=== PATIENT | female | born 1955 | race Caucasian/White ===

== ENCOUNTER 2020-05-05 10:21 | Inpatient (IN) | payer MEDICARE, OTHER ==
--- NOTE | 2020-05-05 11:56 | EDM.PDOC ---
ED HPI GENERAL MEDICAL PROBLEM - General Chief Complaint: Respiratory Problem Stated Complaint: COUGH/HEADACHE Time Seen by Provider: 05/05/20 11:14 Source of Information: Reports: Patient, RN Notes Reviewed History Limitations: Reports: No Limitations - History of Present Illness INITIAL COMMENTS - FREE TEXT/NARRATIVE: Patient is a 64-year-old female who presents to the ED for the evaluation of her ongoing Covid symptoms. Patient notes she was diagnosed with COVID-19 on April 14, she completed her 2 weeks quarantine, and states she feels worse now than she did when she was in her quarantine stage She states that her symptoms seem to worsen at in the evening time. She states that she has a cough that makes her throat raw, she is having some mid central chest discomfort, shortness of breath, not so much at rest, but if she walks any short distance. She states that even talking makes her short of breath. She has a generalized headache, but states naproxen seems to help when she has a headache. She is not having any fevers or chills, nausea/vomiting/diarrhea. She states that she does have diabetes, but she has no other heart or lung issues that she is aware of. Her primary care provider is Shea Cardona. She lives at [facility] at this time. Headache Pain Score (Numeric/FACES): 3 - Related Data Allergies Allergy/AdvReac Type Severity Reaction Status Date / Time levofloxacin [From Levaquin] Allergy Severe Hives Verified 05/05/20 10:35 [id number]-Iug-Mxq Reductase Allergy Severe Leg Cramps Verified 05/05/20 10:35 Inhibitor Home Meds: Home Meds Cetirizine [ZyrTEC] 10 mg PO DAILY 05/05/20 [History] Cyproheptadine HCl 4 mg PO DAILY 05/05/20 [History] DULoxetine [Cymbalta] 60 mg PO DAILY 05/05/20 [History] Empagliflozin [Jardiance] 25 mg PO DAILY 05/05/20 [History] Ezetimibe 10 mg PO DAILY 05/05/20 [History] Fluconazole [Diflucan] 150 mg PO DAILY 05/05/20 [History] Insulin Glarg,Human.Rec.Analog [Lantus Solostar] 5 unit SUBCUT DAILY 05/05/20 [History] Nystatin [Nystatin Ointment] 1 applic TOP DAILY 05/05/20 [History] lisinopriL [Lisinopril] 5 mg PO DAILY 05/05/20 [History] metFORMIN [Glucophage XR] 500 mg PO BIDMEALS 05/05/20 [History] sitaGLIPtin Phosphate [Januvia] 50 mg PO DAILY 05/05/20 [History] Past Medical History Musculoskeletal History: Reports: Arthritis, Fracture Neurological History: Reports: Migraines Endocrine/Metabolic History: Reports: Diabetes, Type II, Obesity/BMI 30+ - Infectious Disease History Infectious Disease History: Reports: Novel Coronavirus (04/14/2020) - Past Surgical History HEENT Surgical History: Reports: Cataract Surgery GI Surgical History: Reports: Cholecystectomy Musculoskeletal Surgical History: Reports: ORIF Social & Family History - Tobacco Use Tobacco Use Status *Q: Former Tobacco User Used Tobacco, but Quit: Yes Month/Year Tobacco Last Used: 1999 - Recreational Drug Use Recreational Drug Use: No ED ROS GENERAL - Review of Systems Review Of Systems: Comprehensive ROS is negative, except as noted in HPI. ED EXAM, GENERAL - Physical Exam Exam: See Below Exam Limited By: No Limitations General Appearance: Alert, WD/WN, No Apparent Distress (pt does seem to get mildly short of breath when talking and this makes it difficult for her to complete sentences.) Throat/Mouth: Normal Inspection, Normal Lips, Normal Teeth, Normal Gums, Normal Oropharynx, Normal Voice, No Airway Compromise Respiratory/Chest: No Respiratory Distress, Lungs Clear, No Accessory Muscle Use, Chest Non-Tender, Decreased Breath Sounds (diffuse bilaterally) Cardiovascular: Normal Peripheral Pulses, Regular Rate, Rhythm, No Murmur Peripheral Pulses: 2+: Radial (L), Radial (R) GI/Abdominal: Normal Bowel Sounds, Soft, Non-Tender, No Distention, No Mass Extremities: Normal Inspection, Normal Capillary Refill Neurological: Alert, Oriented, Normal Cognition, No Motor/Sensory Deficits Psychiatric: Normal Affect, Normal Mood Skin Exam: Warm, Dry, Intact, Normal Color, No Rash #1 Interpretation EKG Date: 05/05/20 Time: 12:24 Rhythm: NSR Rate (Beats/Min): 69 Russell: Normal P-Wave: Present (1 AV block) QRS: Normal ST-T: Normal QT: Prolonged (Moderately prolonged at 529.) Comparison: NA - No Prior EKG EKG Interpretation Comments: No obvious ischemia or acute ST changes noted, reviewed by myself and Dr. Douglas. Course - Vital Signs Last Recorded V/S: Last Vital Signs Temp 97.2 F 05/05/20 10:31 Pulse 93 05/05/20 15:53 Resp 20 05/05/20 15:53 BP 153/83 H 05/05/20 12:16 Pulse Ox 95 05/05/20 15:59 - Orders/Labs/Meds Orders: Active Orders 24 hr Category Date Time Status EKG Documentation Completion [RC] STAT Care 05/05/20 11:40 Ordered Oxygen Therapy, ED [RC] ASDIRECTED Care 05/05/20 15:58 Ordered Ang Chest [CT] Stat Exams 05/05/20 14:17 Ordered Chest 1V Frontal [CR] Stat Exams 05/05/20 11:39 Ordered CULTURE BLOOD [BC] Stat Lab 05/05/20 12:27 Ordered CULTURE BLOOD [BC] Stat Lab 05/05/20 12:27 Ordered Sodium Chloride 0.9% [Normal Saline] 45 ml Med 05/05/20 14:30 Active IV ASDIRECTED Sodium Chloride 0.9% [Saline Flush] Med 05/05/20 14:24 Active 10 ml FLUSH ONETIME PRN Blood Culture x2 Reflex Set [OM.PC] Stat Oth 05/05/20 12:27 Ordered Isolation [COMM] Routine Oth 05/05/20 11:40 Ordered Medication Orders Sodium Chloride (Normal Saline) 45 mls @ 40 mls/hr IV ASDIRECTED [facility] Last Admin: 05/05/20 15:03 Dose: 40 mls/hr Documented by: Sodium Chloride (Saline Flush) 10 ml FLUSH ONETIME PRN PRN Reason: Keep Vein Open Last Admin: 05/05/20 14:36 Dose: 10 ml Documented by: SAMREEN Labs: Laboratory Tests 05/05/20 05/05/20 05/05/20 Range/Units 12:05 12:05 12:05 WBC (3.98-10.04) K/mm3 RBC (3.98-5.22) M/mm3 Hgb (11.2-15.7) gm/dl Hct (34.1-44.9) % MCV (79.4-94.8) fl MCH (25.6-32.2) pg MCHC (32.2-35.5) g/dl RDW Std Deviation (36.4-46.3) fL Plt Count (182-369) K/mm3 MPV (9.4-12.3) fl Neutrophils % (Manual) (40-60) % Band Neutrophils % (0-10) % Lymphocytes % (Manual) (20-40) % Atypical Lymphs % % Monocytes % (Manual) (2-10) % Eosinophils % (Manual) (0.7-5.8) % Basophils % (Manual) (0.1-1.2) Platelet Estimate RBC Morph Comment PT 11.2 (9.7-11.7) SECONDS INR 1.05 APTT 29 (22-31) SECONDS D-Dimer, Quantitative 1.14 H (0.19-0.50) mg/L Puncture Site ABG pH (7.35-7.45) ABG pCO2 (35.0-45.0) mmHg ABG pO2 (80.0-100.0) mmHg ABG HCO3 (22.0-26.0) meq/L ABG O2 Saturation (96.0-97.0) % ABG Base Excess (-2-2.0) Jose M Test A-a Gradient mmHg O2 Delivery Device FiO2 (21.00-100.00) % Sodium 140 (136-145) mEq/L Potassium 3.9 (3.5-5.1) mEq/L Chloride 105 (98-107) mEq/L Carbon Dioxide 27 (21-32) mEq/L Anion Gap 11.9 (5-15) BUN 13 (7-18) mg/dL Creatinine 1.0 (0.55-1.02) mg/dL Est Cr Clr Drug Dosing 53.20 mL/min Estimated GFR (MDRD) 56 (>60) mL/min BUN/Creatinine Ratio 13.0 L (14-18) Glucose 207 H (80-115) mg/dL Lactic Acid (0.4-2.0) mmol/L Calcium 8.6 (8.5-10.1) mg/dL Magnesium 2.1 (1.8-2.4) mg/dl Ferritin (8-252) ng/ml Total Bilirubin 1.0 (0.2-1.0) mg/dL AST 28 (15-37) U/L ALT 39 (14-59) U/L Alkaline Phosphatase 78 (46-116) U/L Lactate Dehydrogenase 330 H (81-234) U/L Troponin I < 0.017 (0.00-0.056) ng/mL C-Reactive Protein 3.1 H* (<1.0) mg/dL NT-Pro-B Natriuret Pep 484 H (0-125) pg/mL Total Protein 7.2 (6.4-8.2) g/dl Albumin 3.4 (3.4-5.0) g/dl Globulin 3.8 gm/dL Albumin/Globulin Ratio 0.9 L (1-2) 05/05/20 05/05/20 05/05/20 Range/Units 12:05 12:05 12:20 WBC 10.59 H (3.98-10.04) K/mm3 RBC 4.93 (3.98-5.22) M/mm3 Hgb 13.9 (11.2-15.7) gm/dl Hct 44.5 (34.1-44.9) % MCV 90.3 (79.4-94.8) fl MCH 28.2 (25.6-32.2) pg MCHC 31.2 L (32.2-35.5) g/dl RDW Std Deviation 49.9 H (36.4-46.3) fL Plt Count 932 H* (182-369) K/mm3 MPV 10.0 (9.4-12.3) fl Neutrophils % (Manual) 73 H (40-60) % Band Neutrophils % 0 (0-10) % Lymphocytes % (Manual) 17 L (20-40) % Atypical Lymphs % 0 % Monocytes % (Manual) 7 (2-10) % Eosinophils % (Manual) 3 (0.7-5.8) % Basophils % (Manual) 0 L (0.1-1.2) Platelet Estimate Marked inc RBC Morph Comment Normal PT (9.7-11.7) SECONDS INR APTT (22-31) SECONDS D-Dimer, Quantitative (0.19-0.50) mg/L Puncture Site ABG pH (7.35-7.45) ABG pCO2 (35.0-45.0) mmHg ABG pO2 (80.0-100.0) mmHg ABG HCO3 (22.0-26.0) meq/L ABG O2 Saturation (96.0-97.0) % ABG Base Excess (-2-2.0) Jose M Test A-a Gradient mmHg O2 Delivery Device FiO2 (21.00-100.00) % Sodium (136-145) mEq/L Potassium (3.5-5.1) mEq/L Chloride (98-107) mEq/L Carbon Dioxide (21-32) mEq/L Anion Gap (5-15) BUN (7-18) mg/dL Creatinine (0.55-1.02) mg/dL Est Cr Clr Drug Dosing mL/min Estimated GFR (MDRD) (>60) mL/min BUN/Creatinine Ratio (14-18) Glucose (80-115) mg/dL Lactic Acid 0.9 (0.4-2.0) mmol/L Calcium (8.5-10.1) mg/dL Magnesium (1.8-2.4) mg/dl Ferritin 125 (8-252) ng/ml Total Bilirubin (0.2-1.0) mg/dL AST (15-37) U/L ALT (14-59) U/L Alkaline Phosphatase (46-116) U/L Lactate Dehydrogenase (81-234) U/L Troponin I (0.00-0.056) ng/mL C-Reactive Protein (<1.0) mg/dL NT-Pro-B Natriuret Pep (0-125) pg/mL Total Protein (6.4-8.2) g/dl Albumin (3.4-5.0) g/dl Globulin gm/dL Albumin/Globulin Ratio (1-2) 05/05/20 Range/Units 12:36 WBC (3.98-10.04) K/mm3 RBC (3.98-5.22) M/mm3 Hgb (11.2-15.7) gm/dl Hct (34.1-44.9) % MCV (79.4-94.8) fl MCH (25.6-32.2) pg MCHC (32.2-35.5) g/dl RDW Std Deviation (36.4-46.3) fL Plt Count (182-369) K/mm3 MPV (9.4-12.3) fl Neutrophils % (Manual) (40-60) % Band Neutrophils % (0-10) % Lymphocytes % (Manual) (20-40) % Atypical Lymphs % % Monocytes % (Manual) (2-10) % Eosinophils % (Manual) (0.7-5.8) % Basophils % (Manual) (0.1-1.2) Platelet Estimate RBC Morph Comment PT (9.7-11.7) SECONDS INR APTT (22-31) SECONDS D-Dimer, Quantitative (0.19-0.50) mg/L Puncture Site Lt radial ABG pH 7.41 (7.35-7.45) ABG pCO2 40.9 (35.0-45.0) mmHg ABG pO2 57.0 L (80.0-100.0) mmHg ABG HCO3 25.5 (22.0-26.0) meq/L ABG O2 Saturation 88.3 L (96.0-97.0) % ABG Base Excess 1.3 (-2-2.0) Jose M Test Positive A-a Gradient 42 mmHg O2 Delivery Device Room air FiO2 21.00 (21.00-100.00) % Sodium (136-145) mEq/L Potassium (3.5-5.1) mEq/L Chloride (98-107) mEq/L Carbon Dioxide (21-32) mEq/L Anion Gap (5-15) BUN (7-18) mg/dL Creatinine (0.55-1.02) mg/dL Est Cr Clr Drug Dosing mL/min Estimated GFR (MDRD) (>60) mL/min BUN/Creatinine Ratio (14-18) Glucose (80-115) mg/dL Lactic Acid (0.4-2.0) mmol/L Calcium (8.5-10.1) mg/dL Magnesium (1.8-2.4) mg/dl Ferritin (8-252) ng/ml Total Bilirubin (0.2-1.0) mg/dL AST (15-37) U/L ALT (14-59) U/L Alkaline Phosphatase (46-116) U/L Lactate Dehydrogenase (81-234) U/L Troponin I (0.00-0.056) ng/mL C-Reactive Protein (<1.0) mg/dL NT-Pro-B Natriuret Pep (0-125) pg/mL Total Protein (6.4-8.2) g/dl Albumin (3.4-5.0) g/dl Globulin gm/dL Albumin/Globulin Ratio (1-2) Meds: Medications Generic Name Dose Route Start Last Admin Trade Name Freq PRN Reason Stop Dose Admin Sodium Chloride 45 mls @ 40 mls/hr 05/05/20 14:30 05/05/20 15:03 Normal Saline IV 40 mls/hr ASDIRECTED BLU Administration Sodium Chloride 10 ml 05/05/20 14:24 05/05/20 15:03 Saline Flush FLUSH 10 ml ONETIME PRN Administration Keep Vein Open Discontinued Medications Generic Name Dose Route Start Last Admin Trade Name Freq PRN Reason Stop Dose Admin Aspirin 324 mg 05/05/20 14:13 05/05/20 14:31 Aspirin PO 05/05/20 14:14 324 mg ONETIME ONE Administration Iopamidol 100 ml 05/05/20 14:24 05/05/20 15:03 Isovue-370 (76%) IVPUSH 05/05/20 14:25 100 ml ONETIME ONE Administration - Re-Assessments/Exams Free Text/Narrative Re-Assessment/Exam: 05/05/20 11:55 Patient presents to the ED for evaluation of her ongoing COVID-19 symptoms. Oxygen saturations at time of arrival is 92% on room air, but while evaluating her and obtaining history, her O2 sats do drop anywhere from 87 to 88% with minimal effort or exertion. Labs will be obtained, along with EKG and a chest x-ray for further evaluation. 05/05/20 12:36 Patient's chest x-ray done portably does demonstrate diffuse bilateral infiltrates, which is consistent with a viral illness like COVID-19. Patient's O2 sats have steadily been high 80s on room air. Once the blood gases have been obtained we will place oxygen at 2 L. 05/05/20 12:52 Blood gases were obtained, patient was placed on 2 L oxygen via nasal cannula. 05/05/20 14:14 Patient's labs have resulted for the most part, the patient's D-dimer was elevated at 1.14, platelets were elevated at 934. I was told that the hospital may be on diversion, so I have ordered a CT angio for evaluation of PE at this time, She will likely need to be admitted to hospital. 05/05/20 14:59 Patient's chest x-ray has finally been read, is limited study due to body habitus and motion, cardiomegaly with pulmonary vascular congestion suggesting fluid overload, possible developing consolidation or edema in the left lower lobe, clinical correlation and follow-up recommended. 05/05/20 15:[address] has been performed, there was no sign of pulmonary embolus, there is extensive groundglass opacities throughout both lung rachel compatible with multifocal pneumonitis. Cardiomegaly. Mild mediastinotomy adenopathy with bilateral hilar adenopathy, and a small right pleural effusion. Departure - Departure Time of Disposition: 16:00 Disposition: Admitted As Inpatient 66 Condition: Good Clinical Impression: COVID-19, Hypoxia - Discharge Information *PRESCRIPTION DRUG MONITORING PROGRAM REVIEWED*: No *COPY OF PRESCRIPTION DRUG MONITORING REPORT IN PATIENT PAULINO: No Referrals: Shea Cardona [employer]INEER [Primary Care Provider] - Forms: ED Department Discharge Sepsis Event Note (ED) - Evaluation Sepsis Screening Result: No Definite Risk - Focused Exam Vital Signs: Vital Signs Temp Pulse Resp BP Pulse Ox Pulse Ox 05/05/20 15:59 95 05/05/20 15:53 93 20 94 L 05/05/20 12:16 86 153/83 H 92 L 05/05/20 10:31 97.2 F 97 24 H 153/74 H 92 L - My Orders Last 24 Hours: My Active Orders 05/05/20 11:39 Chest 1V Frontal [CR] Stat 05/05/20 11:40 EKG Documentation Completion [RC] STAT Isolation [COMM] Routine 05/05/20 12:27 CULTURE BLOOD [BC] Stat CULTURE BLOOD [BC] Stat Blood Culture x2 Reflex Set [OM.PC] Stat 05/05/20 14:17 Ang Chest [CT] Stat 05/05/20 14:24 Sodium Chloride 0.9% [Saline Flush] 10 ml FLUSH ONETIME PRN 05/05/20 14:30 Sodium Chloride 0.9% [Normal Saline] 45 ml IV ASDIRECTED 05/05/20 15:58 Oxygen Therapy, ED [RC] ASDIRECTED - Assessment/Plan Last 24 Hours: My Active Orders 05/05/20 11:39 Chest 1V Frontal [CR] Stat 05/05/20 11:40 EKG Documentation Completion [RC] STAT Isolation [COMM] Routine 05/05/20 12:27 CULTURE BLOOD [BC] Stat CULTURE BLOOD [BC] Stat Blood Culture x2 Reflex Set [OM.PC] Stat 05/05/20 14:17 Ang Chest [CT] Stat 05/05/20 14:24 Sodium Chloride 0.9% [Saline Flush] 10 ml FLUSH ONETIME PRN 05/05/20 14:30 Sodium Chloride 0.9% [Normal Saline] 45 ml IV ASDIRECTED 05/05/20 15:58 Oxygen Therapy, ED [RC] ASDIRECTED
[2020-05-05] MEDS ORDERED: Aspirin 81 MG Tab.Chew PO ONE (14:13)
[2020-05-05] MEDS ORDERED: Iopamidol 755 Mg/ML 100 ML Bottle IVPUSH ONE (14:24)
[2020-05-05] MEDS ORDERED: Sodium Chloride 0.9% 45 ML IV SCH (14:30)
[2020-05-05] MEDS: Sodium Chloride 0.9% 10 ML Syringe FLUSH PRN ×2 (14:36→15:03)
[2020-05-05] MEDS ORDERED: 50% Dextrose in Water 50 ML Syringe IV PRN (16:50)
[2020-05-05] MEDS ORDERED: Acetaminophen 325 MG Tab PO PRN (16:50)
[2020-05-05] MEDS ORDERED: Glucagon,Human Recombinant 1 MG Vial IM PRN (16:50)
[2020-05-05] MEDS ORDERED: Albuterol/Ipratropium 3.0-0.5 MG/3 ML Neb Soln NEB PRN (16:50)
[2020-05-05] MEDS ORDERED: oxyCODONE 5 MG Tab PO PRN (16:50)
[2020-05-05] MEDS ORDERED: Ondansetron 4 MG Tab.DIS PO PRN (16:50)
[2020-05-05] MEDS ORDERED: Docusate Sodium 100 MG Cap PO PRN (16:50)
[2020-05-05] MEDS ORDERED: Azithromycin 500 MG AdvVial IV SCH (17:00)
[2020-05-05] MEDS ORDERED: Dexamethasone 4 MG/ML SDV IVPUSH SCH (17:00)
--- NOTE | 2020-05-05 17:02 | PCM.HP.2 ---
H&P History of Present Illness - General Date of Service: 05/05/20 Admit Problem/Dx: Admission Diagnosis/Problem Admission Diagnosis/Problem Hypoxia, COVID-19 related pneumonia Source of Information: Patient History Limitations: Reports: No Limitations - History of Present Illness Initial Comments - Free Text/Narative: The patient is a 64-year-old lady who has presented to the emergency department with concern for her ongoing COVID-19 symptoms. The patient says that she was diagnosed with Covid on April 14 and she completed 2 weeks of isolation. The patient says that she has a cough. She has been short of breath. She has denied any fever or chills. She says that she has had a headache with this. The patient has had no specific aggravating or relieving factors. She currently is in assisted living. The patient is a diabetic and has been taking medication for this along with her hypertension. She also has a history of dyslipidemia and is also medicated for this. The patient also relates a history of depression and is on Cymbalta for this. Onset of Symptoms: Reports: Gradual Duration of Symptoms: Reports: Week(s): Location: Reports: Head, Generalized Quality: Reports: Ache Severity: Moderate Improves with: Reports: Medication, Rest Worsens with: Reports: Movement Context: Reports: Sick Contact, Other (Prior COVID-19 infection) Associated Symptoms: Reports: cough w sputum (Specks of blood in the sputum), Diaphoresis, Fever/Chills Headache Pain Score (Numeric/FACES): 3 Generalized Pain Score (Numeric/FACES): 2 - Related Data Allergies/Adverse Reactions: Allergies Allergy/AdvReac Type Severity Reaction Status Date / Time levofloxacin [From Levaquin] Allergy Intermediate Hives Verified 05/05/20 16:55 Qouyyob-Plc-Niz Reductase AdvReac Mild Leg Cramps Verified 05/05/20 16:55 Inhibitor Home Medications: Home Meds Cetirizine [ZyrTEC] 10 mg PO DAILY 05/05/20 [History] Cyproheptadine HCl 4 mg PO DAILY 05/05/20 [History] DULoxetine [Cymbalta] 60 mg PO DAILY 05/05/20 [History] Empagliflozin [Jardiance] 25 mg PO DAILY 05/05/20 [History] Ezetimibe 10 mg PO DAILY 05/05/20 [History] Fluconazole [Diflucan] 150 mg PO DAILY 05/05/20 [History] Insulin Glarg,Human.Rec.Analog [Lantus Solostar] 5 unit SUBCUT DAILY 05/05/20 [History] Nystatin [Nystatin Ointment] 1 applic TOP DAILY 05/05/20 [History] lisinopriL [Lisinopril] 5 mg PO DAILY 05/05/20 [History] metFORMIN [Glucophage XR] 500 mg PO BIDMEALS 05/05/20 [History] sitaGLIPtin Phosphate [Januvia] 50 mg PO DAILY 05/05/20 [History] Past Medical History HEENT History: Reports: Allergic Rhinitis Cardiovascular History: Reports: None Respiratory History: Reports: None Gastrointestinal History: Reports: None Genitourinary History: Reports: None Musculoskeletal History: Reports: Arthritis, Fracture Neurological History: Reports: Migraines Psychiatric History: Reports: Depression Endocrine/Metabolic History: Reports: Diabetes, Type II, Obesity/BMI 30+ Hematologic History: Reports: None Immunologic History: Reports: None Oncologic (Cancer) History: Reports: None - Infectious Disease History Infectious Disease History: Reports: Novel Coronavirus (04/14/2020) - Past Surgical History HEENT Surgical History: Reports: Cataract Surgery GI Surgical History: Reports: Cholecystectomy Musculoskeletal Surgical History: Reports: ORIF Social & Family History - Tobacco Use Tobacco Use Status *Q: Former Tobacco User Used Tobacco, but Quit: Yes Month/Year Tobacco Last Used: 1999 - Recreational Drug Use Recreational Drug Use: No - Living Situation & Occupation Living situation: Reports: Single, Assisted Living Occupation: Retired H&P Review of Systems - Review of Systems: Review Of Systems: See Below General: Reports: Malaise, Weakness, Fatigue HEENT: Reports: Headaches, Sore Throat Pulmonary: Reports: Shortness of Breath, Cough Cardiovascular: Reports: No Symptoms Gastrointestinal: Reports: No Symptoms Genitourinary: Reports: No Symptoms Musculoskeletal: Reports: No Symptoms Skin: Reports: No Symptoms Psychiatric: Reports: No Symptoms Neurological: Reports: No Symptoms Hematologic/Lymphatic: Reports: No Symptoms Immunologic: Reports: No Symptoms Exam - Exam Exam: See Below - Vital Signs Vital Signs: Last Vital Signs Temp 36.1 C 05/05/20 16:40 Pulse 93 05/05/20 16:40 Resp 22 H 05/05/20 16:40 BP 153/88 H 05/05/20 16:40 Pulse Ox 94 L 05/05/20 16:40 Weight: 153.768 kg - Exam Quality Assessment: Supplemental Oxygen, Other (Morbidly obese) General: Alert, Oriented, Cooperative HEENT: EACs Clear, EOMI, Mucosa Moist & [place], Nares Patent. No: Conjunctiva Clear (Inflamed), Posterior Pharynx Clear (Inflamed) Neck: Supple, Trachea Midline Lungs: Normal Respiratory Effort, Rales (Widely scattered) Cardiovascular: Regular Rate, Regular Rhythm GI/Abdominal Exam: Normal Bowel Sounds, Soft, No Distention (Female) Exam: Deferred Rectal (Female) Exam: Deferred Back Exam: Normal Inspection, Full Range of Motion Extremities: Normal Inspection, Normal Range of Motion, No Pedal Edema Skin: Warm, Dry, Intact Neurological: Cranial Nerves Intact Neuro Extensive - Mental Status: Alert, Oriented x3, Normal Mood/Affect Neuro Extensive - Motor, Sensory, Reflexes: CN II-XII Intact Psychiatric: Alert, Normal Affect, Normal Mood - Patient Data Lab Results Last 24 hrs: Laboratory Results - last 24 hr 05/05/20 05/05/20 05/05/20 Range/Units 12:05 12:05 12:05 WBC (3.98-10.04) K/mm3 RBC (3.98-5.22) M/mm3 Hgb (11.2-15.7) gm/dl Hct (34.1-44.9) % MCV (79.4-94.8) fl MCH (25.6-32.2) pg MCHC (32.2-35.5) g/dl RDW Std Deviation (36.4-46.3) fL Plt Count (182-369) K/mm3 MPV (9.4-12.3) fl Neutrophils % (Manual) (40-60) % Band Neutrophils % (0-10) % Lymphocytes % (Manual) (20-40) % Atypical Lymphs % % Monocytes % (Manual) (2-10) % Eosinophils % (Manual) (0.7-5.8) % Basophils % (Manual) (0.1-1.2) Platelet Estimate RBC Morph Comment PT 11.2 (9.7-11.7) SECONDS INR 1.05 APTT 29 (22-31) SECONDS D-Dimer, Quantitative 1.14 H (0.19-0.50) mg/L Puncture Site ABG pH (7.35-7.45) ABG pCO2 (35.0-45.0) mmHg ABG pO2 (80.0-100.0) mmHg ABG HCO3 (22.0-26.0) meq/L ABG O2 Saturation (96.0-97.0) % ABG Base Excess (-2-2.0) Jose M Test A-a Gradient mmHg O2 Delivery Device FiO2 (21.00-100.00) % Sodium 140 (136-145) mEq/L Potassium 3.9 (3.5-5.1) mEq/L Chloride 105 (98-107) mEq/L Carbon Dioxide 27 (21-32) mEq/L Anion Gap 11.9 (5-15) BUN 13 (7-18) mg/dL Creatinine 1.0 (0.55-1.02) mg/dL Est Cr Clr Drug Dosing 53.20 mL/min Estimated GFR (MDRD) 56 (>60) mL/min BUN/Creatinine Ratio 13.0 L (14-18) Glucose 207 H (80-115) mg/dL Lactic Acid (0.4-2.0) mmol/L Calcium 8.6 (8.5-10.1) mg/dL Magnesium 2.1 (1.8-2.4) mg/dl Ferritin (8-252) ng/ml Total Bilirubin 1.0 (0.2-1.0) mg/dL AST 28 (15-37) U/L ALT 39 (14-59) U/L Alkaline Phosphatase 78 (46-116) U/L Lactate Dehydrogenase 330 H (81-234) U/L Troponin I < 0.017 (0.00-0.056) ng/mL C-Reactive Protein 3.1 H* (<1.0) mg/dL NT-Pro-B Natriuret Pep 484 H (0-125) pg/mL Total Protein 7.2 (6.4-8.2) g/dl Albumin 3.4 (3.4-5.0) g/dl Globulin 3.8 gm/dL Albumin/Globulin Ratio 0.9 L (1-2) 05/05/20 05/05/20 05/05/20 Range/Units 12:05 12:05 12:20 WBC 10.59 H (3.98-10.04) K/mm3 RBC 4.93 (3.98-5.22) M/mm3 Hgb 13.9 (11.2-15.7) gm/dl Hct 44.5 (34.1-44.9) % MCV 90.3 (79.4-94.8) fl MCH 28.2 (25.6-32.2) pg MCHC 31.2 L (32.2-35.5) g/dl RDW Std Deviation 49.9 H (36.4-46.3) fL Plt Count 932 H* (182-369) K/mm3 MPV 10.0 (9.4-12.3) fl Neutrophils % (Manual) 73 H (40-60) % Band Neutrophils % 0 (0-10) % Lymphocytes % (Manual) 17 L (20-40) % Atypical Lymphs % 0 % Monocytes % (Manual) 7 (2-10) % Eosinophils % (Manual) 3 (0.7-5.8) % Basophils % (Manual) 0 L (0.1-1.2) Platelet Estimate Marked inc RBC Morph Comment Normal PT (9.7-11.7) SECONDS INR APTT (22-31) SECONDS D-Dimer, Quantitative (0.19-0.50) mg/L Puncture Site ABG pH (7.35-7.45) ABG pCO2 (35.0-45.0) mmHg ABG pO2 (80.0-100.0) mmHg ABG HCO3 (22.0-26.0) meq/L ABG O2 Saturation (96.0-97.0) % ABG Base Excess (-2-2.0) Jose M Test A-a Gradient mmHg O2 Delivery Device FiO2 (21.00-100.00) % Sodium (136-145) mEq/L Potassium (3.5-5.1) mEq/L Chloride (98-107) mEq/L Carbon Dioxide (21-32) mEq/L Anion Gap (5-15) BUN (7-18) mg/dL Creatinine (0.55-1.02) mg/dL Est Cr Clr Drug Dosing mL/min Estimated GFR (MDRD) (>60) mL/min BUN/Creatinine Ratio (14-18) Glucose (80-115) mg/dL Lactic Acid 0.9 (0.4-2.0) mmol/L Calcium (8.5-10.1) mg/dL Magnesium (1.8-2.4) mg/dl Ferritin 125 (8-252) ng/ml Total Bilirubin (0.2-1.0) mg/dL AST (15-37) U/L ALT (14-59) U/L Alkaline Phosphatase (46-116) U/L Lactate Dehydrogenase (81-234) U/L Troponin I (0.00-0.056) ng/mL C-Reactive Protein (<1.0) mg/dL NT-Pro-B Natriuret Pep (0-125) pg/mL Total Protein (6.4-8.2) g/dl Albumin (3.4-5.0) g/dl Globulin gm/dL Albumin/Globulin Ratio (1-2) 05/05/20 Range/Units 12:36 WBC (3.98-10.04) K/mm3 RBC (3.98-5.22) M/mm3 Hgb (11.2-15.7) gm/dl Hct (34.1-44.9) % MCV (79.4-94.8) fl MCH (25.6-32.2) pg MCHC (32.2-35.5) g/dl RDW Std Deviation (36.4-46.3) fL Plt Count (182-369) K/mm3 MPV (9.4-12.3) fl Neutrophils % (Manual) (40-60) % Band Neutrophils % (0-10) % Lymphocytes % (Manual) (20-40) % Atypical Lymphs % % Monocytes % (Manual) (2-10) % Eosinophils % (Manual) (0.7-5.8) % Basophils % (Manual) (0.1-1.2) Platelet Estimate RBC Morph Comment PT (9.7-11.7) SECONDS INR APTT (22-31) SECONDS D-Dimer, Quantitative (0.19-0.50) mg/L Puncture Site Lt radial ABG pH 7.41 (7.35-7.45) ABG pCO2 40.9 (35.0-45.0) mmHg ABG pO2 57.0 L (80.0-100.0) mmHg ABG HCO3 25.5 (22.0-26.0) meq/L ABG O2 Saturation 88.3 L (96.0-97.0) % ABG Base Excess 1.3 (-2-2.0) Jose M Test Positive A-a Gradient 42 mmHg O2 Delivery Device Room air FiO2 21.00 (21.00-100.00) % Sodium (136-145) mEq/L Potassium (3.5-5.1) mEq/L Chloride (98-107) mEq/L Carbon Dioxide (21-32) mEq/L Anion Gap (5-15) BUN (7-18) mg/dL Creatinine (0.55-1.02) mg/dL Est Cr Clr Drug Dosing mL/min Estimated GFR (MDRD) (>60) mL/min BUN/Creatinine Ratio (14-18) Glucose (80-115) mg/dL Lactic Acid (0.4-2.0) mmol/L Calcium (8.5-10.1) mg/dL Magnesium (1.8-2.4) mg/dl Ferritin (8-252) ng/ml Total Bilirubin (0.2-1.0) mg/dL AST (15-37) U/L ALT (14-59) U/L Alkaline Phosphatase (46-116) U/L Lactate Dehydrogenase (81-234) U/L Troponin I (0.00-0.056) ng/mL C-Reactive Protein (<1.0) mg/dL NT-Pro-B Natriuret Pep (0-125) pg/mL Total Protein (6.4-8.2) g/dl Albumin (3.4-5.0) g/dl Globulin gm/dL Albumin/Globulin Ratio (1-2) Result Diagrams: 05/05/20 12:20 05/05/20 12:05 Camilo Results Last 24 hrs: Microbiology 05/05/20 12:14 Influenza Type A Antigen Screen - Final Nasopharyngeal Swab NEGATIVE INFLUENZA A VIRUS AG REFERENCE RANGE: NEGATIVE Influenza Type B Antigen Screen - Final NEGATIVE INFLUENZA B VIRUS AG REFERENCE RANGE: NEGATIVE Sepsis Event Note - Evaluation Sepsis Screening Result: No Definite Risk - Focused Exam Vital Signs: Vital Signs Temp Pulse Resp BP Pulse Ox Pulse Ox 05/05/20 16:40 36.1 C 93 22 H 153/88 H 94 L 05/05/20 15:59 95 05/05/20 15:53 93 20 94 L 05/05/20 12:16 86 153/83 H 92 L 05/05/20 10:31 36.2 C 97 24 H 153/74 H 92 L - Problem List (1) Pneumonia SNOMED Code(s): 001431546 ICD Code: J18.9 - PNEUMONIA, UNSPECIFIED ORGANISM Status: Acute Priority: High Current Visit: Yes Problem Details: COVID-19 Qualifiers: Pneumonia type: due to unspecified organism Laterality: unspecified laterality Lung location: unspecified part of lung Qualified Code(s): J18.9 - Pneumonia, unspecified organism (2) Reactive thrombocytosis SNOMED Code(s): 311373626 ICD Code: R79.89 - OTHER SPECIFIED ABNORMAL FINDINGS OF BLOOD CHEMISTRY Status: Acute Priority: High Current Visit: Yes (3) COVID-19 SNOMED Code(s): 309412010 ICD Code: U07.1 - COVID-19 Status: Acute Priority: High Current Visit: Yes (4) Diabetes mellitus type II, non insulin dependent SNOMED Code(s): 73428268 ICD Code: E11.9 - TYPE 2 DIABETES MELLITUS WITHOUT COMPLICATIONS Status: Chronic Priority: High Current Visit: Yes (5) Hypertension SNOMED Code(s): 47357363 ICD Code: I10 - ESSENTIAL (PRIMARY) HYPERTENSION Status: Chronic Priori ty: Medium Current Visit: Yes Qualifiers: Hypertension type: essential hypertension Qualified Code(s): I10 - Essential (primary) hypertension (6) Morbid obesity SNOMED Code(s): 227467039 ICD Code: E66.01 - MORBID (SEVERE) OBESITY DUE TO EXCESS CALORIES Status: Acute Priority: High Current Visit: Yes Problem Details: 54.7 Problem List Initiated/Reviewed/Updated: Yes Orders Last 24hrs: Active Orders 24 hr Category Date Time Status Admission Status [Patient Status] [ADT] Routine ADT 05/05/20 16:25 Active Blood Glucose Check, Bedside [RC] QIDACANDBED Care 05/05/20 16:50 Ordered Blood Glucose Check, Bedside [RC] QIDACANDBED Care 05/05/20 16:50 Ordered Blood Glucose Check, Bedside [RC] QIDACANDBED Care 05/05/20 16:50 Ordered Cardiac Monitoring [RC] CONTINUOUS Care 05/05/20 16:51 Ordered Diabetes Education [RC] Click to Edit Care 05/05/20 16:55 Ordered EKG Documentation Completion [RC] STAT Care 05/05/20 11:40 Active Oxygen Therapy [RC] PRN Care 05/05/20 16:50 Ordered Oxygen Therapy, ED [RC] ASDIRECTED Care 05/05/20 15:58 Active Pulse Oximetry [RC] CONTINUOUS Care 05/05/20 16:51 Ordered RT Aerosol Therapy [RC] ASDIRECTED Care 05/05/20 16:55 Ordered Up With Assistance [RC] ASDIRECTED Care 05/05/20 16:50 Ordered VTE/DVT Education [RC] PER UNIT ROUTINE Care 05/05/20 16:50 Ordered Vital Signs [RC] Q4H Care 05/05/20 16:50 Ordered Consistent Carbohydrate Diet [DIET] Diet 05/05/20 Dinner Ordered Ang Chest [CT] Stat Exams 05/05/20 14:17 Taken Chest 1V Frontal [CR] Stat Exams 05/05/20 11:39 Taken C-REACTIVE PROTEIN [CHEM] AM Lab 05/06/20 05:11 Ordered CBC WITH AUTO DIFF [HEME] AM Lab 05/06/20 05:11 Ordered COMPREHENSIVE METABOLIC PN,CMP [CHEM] AM Lab 05/06/20 05:11 Ordered CULTURE BLOOD [BC] Stat Lab 05/05/20 12:05 Received CULTURE BLOOD [BC] Stat Lab 05/05/20 12:15 Received D-DIMER QUANTITATIVE [COAG] AM Lab 05/06/20 05:11 Ordered GLYCOSYLATED HEMOGLOBIN,HGBA1C [CHEM] Routine Lab 05/05/20 16:50 Ordered MAGNESIUM [CHEM] AM Lab 05/06/20 05:11 Ordered PHOSPHORUS [CHEM] AM Lab 05/06/20 05:11 Ordered Acetaminophen [TylenoL] Med 05/05/20 16:50 Ordered 650 mg PO Q4H PRN Albuterol/Ipratropium [DuoNeb 3.0-0.5 MG/3 ML] Med 05/05/20 16:50 Ordered 3 ml NEB Q4H PRN Aspirin [Ecotrin] Med 05/06/20 09:00 Ordered 325 mg PO DAILY Azithromycin [Zithromax] Med 05/05/20 17:00 Ordered 500 mg IV Q24H DULoxetine Med 05/06/20 09:00 Ordered 60 mg PO DAILY Dextrose 50% in Water Med 05/05/20 16:50 Ordered 50 ml IV ASDIRECTED PRN Docusate Sodium [Colace] Med 05/05/20 16:50 Ordered 100 mg PO BID PRN Enoxaparin [Lovenox] Med 05/05/20 17:00 Ordered 40 mg SUBCUT DAILY Ezetimibe [Zetia] Med 05/06/20 09:00 Ordered 10 mg PO DAILY Glucagon,Human Recombinant [GlucaGen] Med 05/05/20 16:50 Ordered 1 mg IM ASDIRECTED PRN Insulin Regular, Human [HumuLIN R] Med 05/05/20 19:00 Ordered See Protocol SUBCUT TIDPC Ondansetron [Zofran ODT] Med 05/05/20 16:50 Ordered 4 mg PO Q6H PRN Sodium Chloride 0.9% [Normal Saline] 1,000 ml Med 05/05/20 17:00 Ordered IV ASDIRECTED Sodium Chloride 0.9% [Normal Saline] 45 ml Med 05/05/20 14:30 Active IV ASDIRECTED Sodium Chloride 0.9% [Saline Flush] Med 05/05/20 14:24 Active 10 ml FLUSH ONETIME PRN Temazepam [Restoril] Med 05/05/20 16:50 Ordered 15 mg PO BEDTIME PRN dexAMETHasone [Dexamethasone] Med 05/05/20 17:00 Ordered 6 mg IVPUSH DAILY lisinopriL [Prinivil] Med 05/06/20 09:00 Ordered 5 mg PO DAILY oxyCODONE Med 05/05/20 16:50 Ordered 5 mg PO Q4H PRN Blood Culture x2 Reflex Set [OM.PC] Stat Oth 05/05/20 12:27 Ordered Glucose Management Sub Q Reflex [OM.PC] Click to Edit Oth 05/05/20 16:50 Ordered Isolation [COMM] Routine Oth 05/05/20 11:40 Ordered Resuscitation Status Routine Resus Stat 05/05/20 16:50 Ordered Medication Orders Acetaminophen (Tylenol) 650 mg PO Q4H PRN PRN Reason: Pain (Mild 1-3)/fever Albuterol/Ipratropium (Duoneb 3.0-0.5 Mg/3 Ml) 3 ml NEB Q4H PRN PRN Reason: Shortness Of Breath/wheezing Azithromycin (Zithromax) 500 mg IV Q24H BLU Dexamethasone (Dexamethasone) 6 mg IVPUSH DAILY BLU Dextrose/Water (Dextrose 50% In Water) 50 ml IV ASDIRECTED PRN PRN Reason: Hypoglycemia Docusate Sodium (Colace) 100 mg PO BID PRN PRN Reason: Constipation Duloxetine HCl (Cymbalta) 60 mg PO DAILY [facility] Ezetimibe (Zetia) 10 mg PO DAILY [facility] Enoxaparin Sodium (Lovenox) 40 mg SUBCUT DAILY [facility] Glucagon (Glucagen) 1 mg IM ASDIRECTED PRN PRN Reason: Hypoglycemia Sodium Chloride (Normal Saline) 45 mls @ 40 mls/hr IV ASDIRECTED BLU Last Admin: 05/05/20 15:03 Dose: 40 mls/hr Documented by: JUAN DAVID Sodium Chloride (Normal Saline) 1,000 mls @ 75 mls/hr IV ASDIRECTED [facility] Insulin Human Regular (Humulin R) 0 unit SUBCUT TIDPC [facility]; Protocol Lisinopril (Prinivil) 5 mg PO DAILY [facility] Ondansetron HCl (Zofran Odt) 4 mg PO Q6H PRN PRN Reason: nausea, able to take PO Oxycodone HCl (Oxycodone) 5 mg PO Q4H PRN PRN Reason: Pain (moderate 4-6) Sodium Chloride (Saline Flush) 10 ml FLUSH ONETIME PRN PRN Reason: Keep Vein Open Last Admin: 05/05/20 15:03 Dose: 10 ml Documented by: JUAN DAVID Admin: 05/05/20 14:36 Dose: 10 ml Documented by: SAMREEN Temazepam (Restoril) 15 mg PO BEDTIME PRN PRN Reason: Sleep Assessment/Plan Comment:: The patient is a 64-year-old lady who has been admitted to acute inpatient hospitalization due to pneumonia likely associated with COVID-19. The patient will be started on dexamethasone 6 mg IV daily. I have also elected to start the patient on azithromycin 500 mg IV daily. She is a diabetic and therefore will be kept on insulin sliding scale as well as ADA diet. The patient's oxygen will be monitored and she will be kept on oxygen to help keep her saturations around 90 to 92%. I have discontinued her antidiabetic medication for now. The patient also has thrombocytosis and as a result of this I placed the patient on antiplatelet agents. The patient also be anticoagulated with the use of Lovenox for 40 mg subcu daily. I have also ordered repeat laboratory testing for the patient. I anticipate the patient should be in the hospital 3 to 5 days. - Mortality Measure Prognosis:: Good
[2020-05-05] MEDS: Sodium Chloride 0.9% 1,000 ML IV SCH (18:30)
[2020-05-05] MEDS: Azithromycin 500 MG in Sodium Chloride 0.9% 250 ML IV SCH (18:37)
[2020-05-05] MEDS: Enoxaparin 40 MG/0.4 ML Syringe SUBCUT SCH (18:44)
[2020-05-05] MEDS ORDERED: Codeine/guaiFENesin 10-100 MG/5 ML Syrup 5 ML Syringe PO PRN (18:48)
[2020-05-05] MEDS ORDERED: FLU VACC QS2020-21(6MOS UP)/PF 60 MCG/0.5 ML SYRINGE IM ONE (20:00)
[2020-05-05] MEDS ORDERED: Temazepam 15 MG Cap PO PRN (21:00)
[2020-05-05] MEDS: Codeine/Promethazine 10-6.25 MG/5 ML Syrup 5 ML UD Cup PO PRN (23:08)
[2020-05-06] MEDS ORDERED: Codeine/Promethazine 10-6.25 MG/5 ML Syrup 5 ML UD Cup PO SCH
[2020-05-06] MEDS: Sodium Chloride 0.9% 1,000 ML IV SCH (07:33)
--- NOTE | 2020-05-06 07:53 | PCM.PN ---
- General Info Date of Service: 05/06/20 Admission Dx/Problem (Free Text): Admission Diagnosis/Problem Admission Diagnosis/Problem Hypoxia, COVID-19 related pneumonia Subjective Update: The patient is a 64-year-old lady who was admitted yesterday secondary to hypoxia and COVID-19. The patient has not been placed on remdesivir because she is outside the treatment window. She is on dexamethasone and oxygen. The patient says that she is doing much better today. She says that she is breathing better. Has been tolerating diet. Functional Status: Reports: Pain Controlled, Tolerating Diet - Review of Systems General: Reports: Weakness, Fatigue HEENT: Reports: No Symptoms Pulmonary: Reports: Shortness of Breath, Cough, Wheezing Cardiovascular: Reports: No Symptoms Gastrointestinal: Reports: No Symptoms Genitourinary: Reports: No Symptoms Musculoskeletal: Reports: No Symptoms Skin: Reports: No Symptoms Neurological: Reports: No Symptoms Psychiatric: Reports: No Symptoms - Patient Data Vitals - Most Recent: Last Vital Signs Temp 36.0 C L 05/06/20 07:40 Pulse 79 05/06/20 07:40 Resp 20 05/06/20 07:40 BP 133/83 05/06/20 07:40 Pulse Ox 95 05/06/20 07:40 Weight - Most Recent: 154.494 kg I&O - Last 24 Hours: Intake & Output 05/05/20 05/06/20 05/06/20 22:59 06:59 14:59 Intake Total 1609 Output Total 1400 Balance 209 Lab Results Last 24 Hours: Laboratory Results - last 24 hr 05/05/20 05/05/20 05/05/20 Range/Units 12:00 12:05 12:05 WBC (3.98-10.04) K/mm3 RBC (3.98-5.22) M/mm3 Hgb (11.2-15.7) gm/dl Hct (34.1-44.9) % MCV (79.4-94.8) fl MCH (25.6-32.2) pg MCHC (32.2-35.5) g/dl RDW Std Deviation (36.4-46.3) fL Plt Count (182-369) K/mm3 MPV (9.4-12.3) fl Neut % (Auto) (34.0-71.1) % Lymph % (Auto) (19.3-51.7) % Summers % (Auto) (4.7-12.5) % Eos % (Auto) (0.7-5.8) Baso % (Auto) (0.1-1.2) % Neut # (Auto) (1.56-6.13) K/mm3 Lymph # (Auto) (1.18-3.74) K/mm3 Summers # (Auto) (0.24-0.36) K/mm3 Eos # (Auto) (0.04-0.36) K/mm3 Baso # (Auto) (0.01-0.08) K/mm3 Neutrophils % (Manual) (40-60) % Band Neutrophils % (0-10) % Lymphocytes % (Manual) (20-40) % Atypical Lymphs % % Monocytes % (Manual) (2-10) % Eosinophils % (Manual) (0.7-5.8) % Basophils % (Manual) (0.1-1.2) Platelet Estimate RBC Morph Comment PT 11.2 (9.7-11.7) SECONDS INR 1.05 APTT 29 (22-31) SECONDS D-Dimer, Quantitative 1.14 H (0.19-0.50) mg/L Puncture Site ABG pH (7.35-7.45) ABG pCO2 (35.0-45.0) mmHg ABG pO2 (80.0-100.0) mmHg ABG HCO3 (22.0-26.0) meq/L ABG O2 Saturation (96.0-97.0) % ABG Base Excess (-2-2.0) Jose M Test A-a Gradient mmHg O2 Delivery Device FiO2 (21.00-100.00) % Sodium 140 (136-145) mEq/L Potassium 3.9 (3.5-5.1) mEq/L Chloride 105 (98-107) mEq/L Carbon Dioxide 27 (21-32) mEq/L Anion Gap 11.9 (5-15) BUN 13 (7-18) mg/dL Creatinine 1.0 (0.55-1.02) mg/dL Est Cr Clr Drug Dosing 53.20 mL/min Estimated GFR (MDRD) 56 (>60) mL/min BUN/Creatinine Ratio 13.0 L (14-18) Glucose 207 H (80-115) mg/dL POC Glucose (80-115) mg/dL Hemoglobin A1c 7.00 H (4.50-6.20) % Lactic Acid (0.4-2.0) mmol/L Calcium 8.6 (8.5-10.1) mg/dL Phosphorus (2.6-4.7) mg/dL Magnesium 2.1 (1.8-2.4) mg/dl Ferritin (8-252) ng/ml Total Bilirubin 1.0 (0.2-1.0) mg/dL AST 28 (15-37) U/L ALT 39 (14-59) U/L Alkaline Phosphatase 78 (46-116) U/L Lactate Dehydrogenase 330 H (81-234) U/L Troponin I < 0.017 (0.00-0.056) ng/mL C-Reactive Protein 3.1 H* (<1.0) mg/dL NT-Pro-B Natriuret Pep (0-125) pg/mL Total Protein 7.2 (6.4-8.2) g/dl Albumin 3.4 (3.4-5.0) g/dl Globulin 3.8 gm/dL Albumin/Globulin Ratio 0.9 L (1-2) 05/05/20 05/05/20 05/05/20 Range/Units 12:05 12:05 12:05 WBC (3.98-10.04) K/mm3 RBC (3.98-5.22) M/mm3 Hgb (11.2-15.7) gm/dl Hct (34.1-44.9) % MCV (79.4-94.8) fl MCH (25.6-32.2) pg MCHC (32.2-35.5) g/dl RDW Std Deviation (36.4-46.3) fL Plt Count (182-369) K/mm3 MPV (9.4-12.3) fl Neut % (Auto) (34.0-71.1) % Lymph % (Auto) (19.3-51.7) % Summers % (Auto) (4.7-12.5) % Eos % (Auto) (0.7-5.8) Baso % (Auto) (0.1-1.2) % Neut # (Auto) (1.56-6.13) K/mm3 Lymph # (Auto) (1.18-3.74) K/mm3 Summers # (Auto) (0.24-0.36) K/mm3 Eos # (Auto) (0.04-0.36) K/mm3 Baso # (Auto) (0.01-0.08) K/mm3 Neutrophils % (Manual) (40-60) % Band Neutrophils % (0-10) % Lymphocytes % (Manual) (20-40) % Atypical Lymphs % % Monocytes % (Manual) (2-10) % Eosinophils % (Manual) (0.7-5.8) % Basophils % (Manual) (0.1-1.2) Platelet Estimate RBC Morph Comment PT (9.7-11.7) SECONDS INR APTT (22-31) SECONDS D-Dimer, Quantitative (0.19-0.50) mg/L Puncture Site ABG pH (7.35-7.45) ABG pCO2 (35.0-45.0) mmHg ABG pO2 (80.0-100.0) mmHg ABG HCO3 (22.0-26.0) meq/L ABG O2 Saturation (96.0-97.0) % ABG Base Excess (-2-2.0) Jose M Test A-a Gradient mmHg O2 Delivery Device FiO2 (21.00-100.00) % Sodium (136-145) mEq/L Potassium (3.5-5.1) mEq/L Chloride (98-107) mEq/L Carbon Dioxide (21-32) mEq/L Anion Gap (5-15) BUN (7-18) mg/dL Creatinine (0.55-1.02) mg/dL Est Cr Clr Drug Dosing mL/min Estimated GFR (MDRD) (>60) mL/min BUN/Creatinine Ratio (14-18) Glucose (80-115) mg/dL POC Glucose (80-115) mg/dL Hemoglobin A1c (4.50-6.20) % Lactic Acid 0.9 (0.4-2.0) mmol/L Calcium (8.5-10.1) mg/dL Phosphorus (2.6-4.7) mg/dL Magnesium (1.8-2.4) mg/dl Ferritin 125 (8-252) ng/ml Total Bilirubin (0.2-1.0) mg/dL AST (15-37) U/L ALT (14-59) U/L Alkaline Phosphatase (46-116) U/L Lactate Dehydrogenase (81-234) U/L Troponin I (0.00-0.056) ng/mL C-Reactive Protein (<1.0) mg/dL NT-Pro-B Natriuret Pep 484 H (0-125) pg/mL Total Protein (6.4-8.2) g/dl Albumin (3.4-5.0) g/dl Globulin gm/dL Albumin/Globulin Ratio (1-2) 05/05/20 05/05/20 05/05/20 Range/Units 12:20 12:36 17:51 WBC 10.59 H (3.98-10.04) K/mm3 RBC 4.93 (3.98-5.22) M/mm3 Hgb 13.9 (11.2-15.7) gm/dl Hct 44.5 (34.1-44.9) % MCV 90.3 (79.4-94.8) fl MCH 28.2 (25.6-32.2) pg MCHC 31.2 L (32.2-35.5) g/dl RDW Std Deviation 49.9 H (36.4-46.3) fL Plt Count 932 H* (182-369) K/mm3 MPV 10.0 (9.4-12.3) fl Neut % (Auto) (34.0-71.1) % Lymph % (Auto) (19.3-51.7) % Summers % (Auto) (4.7-12.5) % Eos % (Auto) (0.7-5.8) Baso % (Auto) (0.1-1.2) % Neut # (Auto) (1.56-6.13) K/mm3 Lymph # (Auto) (1.18-3.74) K/mm3 Summers # (Auto) (0.24-0.36) K/mm3 Eos # (Auto) (0.04-0.36) K/mm3 Baso # (Auto) (0.01-0.08) K/mm3 Neutrophils % (Manual) 73 H (40-60) % Band Neutrophils % 0 (0-10) % Lymphocytes % (Manual) 17 L (20-40) % Atypical Lymphs % 0 % Monocytes % (Manual) 7 (2-10) % Eosinophils % (Manual) 3 (0.7-5.8) % Basophils % (Manual) 0 L (0.1-1.2) Platelet Estimate Marked inc RBC Morph Comment Normal PT (9.7-11.7) SECONDS INR APTT (22-31) SECONDS D-Dimer, Quantitative (0.19-0.50) mg/L Puncture Site Lt radial ABG pH 7.41 (7.35-7.45) ABG pCO2 40.9 (35.0-45.0) mmHg ABG pO2 57.0 L (80.0-100.0) mmHg ABG HCO3 25.5 (22.0-26.0) meq/L ABG O2 Saturation 88.3 L (96.0-97.0) % ABG Base Excess 1.3 (-2-2.0) Jose M Test Positive A-a Gradient 42 mmHg O2 Delivery Device Room air FiO2 21.00 (21.00-100.00) % Sodium (136-145) mEq/L Potassium (3.5-5.1) mEq/L Chloride (98-107) mEq/L Carbon Dioxide (21-32) mEq/L Anion Gap (5-15) BUN (7-18) mg/dL Creatinine (0.55-1.02) mg/dL Est Cr Clr Drug Dosing mL/min Estimated GFR (MDRD) (>60) mL/min BUN/Creatinine Ratio (14-18) Glucose (80-115) mg/dL POC Glucose 157 H (80-115) mg/dL Hemoglobin A1c (4.50-6.20) % Lactic Acid (0.4-2.0) mmol/L Calcium (8.5-10.1) mg/dL Phosphorus (2.6-4.7) mg/dL Magnesium (1.8-2.4) mg/dl Ferritin (8-252) ng/ml Total Bilirubin (0.2-1.0) mg/dL AST (15-37) U/L ALT (14-59) U/L Alkaline Phosphatase (46-116) U/L Lactate Dehydrogenase (81-234) U/L Troponin I (0.00-0.056) ng/mL C-Reactive Protein (<1.0) mg/dL NT-Pro-B Natriuret Pep (0-125) pg/mL Total Protein (6.4-8.2) g/dl Albumin (3.4-5.0) g/dl Globulin gm/dL Albumin/Globulin Ratio (1-2) 05/05/20 05/06/20 05/06/20 Range/Units 23:06 05:39 05:39 WBC 11.59 H (3.98-10.04) K/mm3 RBC 4.79 (3.98-5.22) M/mm3 Hgb 13.4 (11.2-15.7) gm/dl Hct 43.1 (34.1-44.9) % MCV 90.0 (79.4-94.8) fl MCH 28.0 (25.6-32.2) pg MCHC 31.1 L (32.2-35.5) g/dl RDW Std Deviation 49.3 H (36.4-46.3) fL Plt Count 976 H* (182-369) K/mm3 MPV 10.3 (9.4-12.3) fl Neut % (Auto) 85.9 H (34.0-71.1) % Lymph % (Auto) 10.2 L (19.3-51.7) % Summers % (Auto) 3.2 L (4.7-12.5) % Eos % (Auto) 0 L (0.7-5.8) Baso % (Auto) 0.2 (0.1-1.2) % Neut # (Auto) 9.96 H (1.56-6.13) K/mm3 Lymph # (Auto) 1.18 (1.18-3.74) K/mm3 Summers # (Auto) 0.37 H (0.24-0.36) K/mm3 Eos # (Auto) 0.00 L (0.04-0.36) K/mm3 Baso # (Auto) 0.02 (0.01-0.08) K/mm3 Neutrophils % (Manual) (40-60) % Band Neutrophils % (0-10) % Lymphocytes % (Manual) (20-40) % Atypical Lymphs % % Monocytes % (Manual) (2-10) % Eosinophils % (Manual) (0.7-5.8) % Basophils % (Manual) (0.1-1.2) Platelet Estimate RBC Morph Comment PT (9.7-11.7) SECONDS INR APTT (22-31) SECONDS D-Dimer, Quantitative (0.19-0.50) mg/L Puncture Site ABG pH (7.35-7.45) ABG pCO2 (35.0-45.0) mmHg ABG pO2 (80.0-100.0) mmHg ABG HCO3 (22.0-26.0) meq/L ABG O2 Saturation (96.0-97.0) % ABG Base Excess (-2-2.0) Jose M Test A-a Gradient mmHg O2 Delivery Device FiO2 (21.00-100.00) % Sodium 138 (136-145) mEq/L Potassium 4.1 (3.5-5.1) mEq/L Chloride 104 (98-107) mEq/L Carbon Dioxide 23 (21-32) mEq/L Anion Gap 15.1 H (5-15) BUN 17 (7-18) mg/dL Creatinine 1.0 (0.55-1.02) mg/dL Est Cr Clr Drug Dosing 53.20 mL/min Estimated GFR (MDRD) 56 (>60) mL/min BUN/Creatinine Ratio 17.0 (14-18) Glucose 219 H (80-115) mg/dL POC Glucose 225 H (80-115) mg/dL Hemoglobin A1c (4.50-6.20) % Lactic Acid (0.4-2.0) mmol/L Calcium 8.4 L (8.5-10.1) mg/dL Phosphorus 4.3 (2.6-4.7) mg/dL Magnesium 2.2 (1.8-2.4) mg/dl Ferritin (8-252) ng/ml Total Bilirubin 1.0 (0.2-1.0) mg/dL AST 25 (15-37) U/L ALT 35 (14-59) U/L Alkaline Phosphatase 73 (46-116) U/L Lactate Dehydrogenase (81-234) U/L Troponin I (0.00-0.056) ng/mL C-Reactive Protein 2.7 H* (<1.0) mg/dL NT-Pro-B Natriuret Pep (0-125) pg/mL Total Protein 7.0 (6.4-8.2) g/dl Albumin 3.3 L (3.4-5.0) g/dl Globulin 3.7 gm/dL Albumin/Globulin Ratio 0.9 L (1-2) 05/06/20 05/06/20 Range/Units 05:39 06:56 WBC (3.98-10.04) K/mm3 RBC (3.98-5.22) M/mm3 Hgb (11.2-15.7) gm/dl Hct (34.1-44.9) % MCV (79.4-94.8) fl MCH (25.6-32.2) pg MCHC (32.2-35.5) g/dl RDW Std Deviation (36.4-46.3) fL Plt Count (182-369) K/mm3 MPV (9.4-12.3) fl Neut % (Auto) (34.0-71.1) % Lymph % (Auto) (19.3-51.7) % Summers % (Auto) (4.7-12.5) % Eos % (Auto) (0.7-5.8) Baso % (Auto) (0.1-1.2) % Neut # (Auto) (1.56-6.13) K/mm3 Lymph # (Auto) (1.18-3.74) K/mm3 Summers # (Auto) (0.24-0.36) K/mm3 Eos # (Auto) (0.04-0.36) K/mm3 Baso # (Auto) (0.01-0.08) K/mm3 Neutrophils % (Manual) (40-60) % Band Neutrophils % (0-10) % Lymphocytes % (Manual) (20-40) % Atypical Lymphs % % Monocytes % (Manual) (2-10) % Eosinophils % (Manual) (0.7-5.8) % Basophils % (Manual) (0.1-1.2) Platelet Estimate RBC Morph Comment PT (9.7-11.7) SECONDS INR APTT (22-31) SECONDS D-Dimer, Quantitative 0.87 H (0.19-0.50) mg/L Puncture Site ABG pH (7.35-7.45) ABG pCO2 (35.0-45.0) mmHg ABG pO2 (80.0-100.0) mmHg ABG HCO3 (22.0-26.0) meq/L ABG O2 Saturation (96.0-97.0) % ABG Base Excess (-2-2.0) Jose M Test A-a Gradient mmHg O2 Delivery Device FiO2 (21.00-100.00) % Sodium (136-145) mEq/L Potassium (3.5-5.1) mEq/L Chloride (98-107) mEq/L Carbon Dioxide (21-32) mEq/L Anion Gap (5-15) BUN (7-18) mg/dL Creatinine (0.55-1.02) mg/dL Est Cr Clr Drug Dosing mL/min Estimated GFR (MDRD) (>60) mL/min BUN/Creatinine Ratio (14-18) Glucose (80-115) mg/dL POC Glucose 188 H (80-115) mg/dL Hemoglobin A1c (4.50-6.20) % Lactic Acid (0.4-2.0) mmol/L Calcium (8.5-10.1) mg/dL Phosphorus (2.6-4.7) mg/dL Magnesium (1.8-2.4) mg/dl Ferritin (8-252) ng/ml Total Bilirubin (0.2-1.0) mg/dL AST (15-37) U/L ALT (14-59) U/L Alkaline Phosphatase (46-116) U/L Lactate Dehydrogenase (81-234) U/L Troponin I (0.00-0.056) ng/mL C-Reactive Protein (<1.0) mg/dL NT-Pro-B Natriuret Pep (0-125) pg/mL Total Protein (6.4-8.2) g/dl Albumin (3.4-5.0) g/dl Globulin gm/dL Albumin/Globulin Ratio (1-2) Camilo Results Last 24 Hours: Microbiology 05/05/20 12:14 Influenza Type A Antigen Screen - Final Nasopharyngeal Swab NEGATIVE INFLUENZA A VIRUS AG REFERENCE RANGE: NEGATIVE Influenza Type B Antigen Screen - Final NEGATIVE INFLUENZA B VIRUS AG REFERENCE RANGE: NEGATIVE Med Orders - Current: Current Medications Acetaminophen (Tylenol) 650 mg PO Q4H PRN PRN Reason: Pain (Mild 1-3)/fever Last Admin: 05/06/20 01:13 Dose: 650 mg Documented by: Albuterol/Ipratropium (Duoneb 3.0-0.5 Mg/3 Ml) 3 ml NEB Q4H PRN PRN Reason: Shortness Of Breath/wheezing Aspirin (Ecotrin) 325 mg PO DAILY [facility] Dexamethasone (Dexamethasone) 6 mg IVPUSH DAILY [facility] Last Admin: 05/05/20 18:27 Dose: 6 mg Documented by: Dextrose/Water (Dextrose 50% In Water) 50 ml IV ASDIRECTED PRN PRN Reason: Hypoglycemia Docusate Sodium (Colace) 100 mg PO BID PRN PRN Reason: Constipation Duloxetine HCl (Cymbalta) 60 mg PO DAILY [facility] Ezetimibe (Zetia) 10 mg PO DAILY [facility] Enoxaparin Sodium (Lovenox) 40 mg SUBCUT DAILY [facility] Last Admin: 05/05/20 18:44 Dose: 40 mg Documented by: Glucagon (Glucagen) 1 mg IM ASDIRECTED PRN PRN Reason: Hypoglycemia Sodium Chloride (Normal Saline) 45 mls @ 40 mls/hr IV ASDIRECTED [facility] Last Admin: 05/05/20 15:03 Dose: 40 mls/hr Documented by: Sodium Chloride (Normal Saline) 1,000 mls @ 75 mls/hr IV ASDIRECTED [facility] Last Admin: 05/06/20 07:33 Dose: 75 mls/hr Documented by: Azithromycin 500 mg/ Sodium (Chloride) 250 mls @ 250 mls/hr IV Q24H [facility] Last Admin: 05/05/20 18:37 Dose: 250 mls/hr Documented by: Insulin [facility] Protocol Lisinopril (Prinivil) 5 mg PO DAILY [facility] Ondansetron HCl (Zofran Odt) 4 mg PO Q6H PRN PRN Reason: nausea, able to take PO Oxycodone HCl (Oxycodone) 5 mg PO Q4H PRN PRN Reason: Pain (moderate 4-6) Promethazine HCl/Codeine (Phenergan With Codeine) 5 ml PO Q6HR PRN PRN Reason: Cough Last Admin: 05/05/20 23:08 Dose: 5 ml Documented by: Sodium Chloride (Saline Flush) 10 ml FLUSH ONETIME PRN PRN Reason: Keep Vein Open Last Admin: 05/05/20 15:03 Dose: 10 ml Documented by: Temazepam (Restoril) 15 mg PO BEDTIME PRN PRN Reason: Sleep Discontinued Medications Aspirin (Aspirin) 324 mg PO ONETIME ONE Stop: 05/05/20 14:14 Last Admin: 05/05/20 14:31 Dose: 324 mg Documented by: Azithromycin (Zithromax) 500 mg IV Q24H BLU Last Admin: 05/05/20 19:05 Dose: Not Given Documented by: Influenza Virus Vaccine (Fluzone Quad Syringe) 60 mcg IM .ONCE ONE Stop: 05/05/20 20:01 Iopamidol (Isovue-370 (76%)) 100 ml IVPUSH ONETIME ONE Stop: 05/05/20 14:25 Last Admin: 05/05/20 15:03 Dose: 100 ml Documented by: Promethazine HCl/Codeine (Phenergan With Codeine) 5 ml PO Q6HR BLU - Exam Quality Assessment: Supplemental Oxygen, DVT Prophylaxis General: Alert, Oriented, Cooperative HEENT: Pupils Equal, Pupils Reactive, EOMI, Mucous Membr. Moist/[place] Neck: Supple, Trachea Midline Lungs: Normal Respiratory Effort, Rales Cardiovascular: Regular Rate, Regular Rhythm GI/Abdominal Exam: Normal Bowel Sounds, Soft, No Distention (Female) Exam: Deferred Back Exam: Normal Inspection, Full Range of Motion Extremities: Normal Inspection, No Pedal Edema Skin: Warm, Dry, Intact Neurological: No New Focal Deficit Psy/Mental Status: Alert, Normal Affect, Normal Mood Sepsis Event Note - Evaluation Sepsis Screening Result: No Definite Risk - Focused Exam Vital Signs: Vital Signs Temp Temp Pulse Resp BP Pulse Ox Pulse Ox 05/06/20 07:40 36.0 C L 79 20 133/83 95 05/06/20 05:44 91 L 05/06/20 04:00 36.1 C 88 20 140/75 94 L 05/06/20 01:13 36.8 C 05/05/20 21:00 36.8 C 80 20 92 L 05/05/20 20:25 92 L - Problem List & Annotations (1) Pneumonia SNOMED Code(s): 179328388 Code(s): J18.9 - PNEUMONIA, UNSPECIFIED ORGANISM Status: Acute Priority: High Current Visit: Yes Qualifiers: Pneumonia type: due to unspecified organism Laterality: unspecified laterality Lung location: unspecified part of lung Qualified Code(s): J18.9 - Pneumonia, unspecified organism Annotation/Comment:: COVID-19 (2) Reactive thrombocytosis SNOMED Code(s): 091577719 Code(s): R79.89 - OTHER SPECIFIED ABNORMAL FINDINGS OF BLOOD CHEMISTRY Status: Acute Priority: High Current Visit: Yes (3) COVID-19 SNOMED Code(s): 831693119 Code(s): U07.1 - COVID-19 Status: Acute Priority: High Current Visit: Yes (4) Diabetes mellitus type II, non insulin dependent SNOMED Code(s): 62800857 Code(s): E11.9 - TYPE 2 DIABETES MELLITUS WITHOUT COMPLICATIONS Status: Chronic Priority: High Current Visit: Yes (5) Hypertension SNOMED Code(s): 22892515 Code(s): I10 - ESSENTIAL (PRIMARY) HYPERTENSION Status: Chronic Priority: Medium Current Visit: Yes Qualifiers: Hypertension type: essential hypertension Qualified Code(s): I10 - Essential (primary) hypertension (6) Morbid obesity SNOMED Code(s): 268092155 Code(s): E66.01 - MORBID (SEVERE) OBESITY DUE TO EXCESS CALORIES Status: Acute Priority: High Current Visit: Yes Annotation/Comment:: 54.7 - Problem List Review Problem List Initiated/Reviewed/Updated: Yes - My Orders Last 24 Hours: My Active Orders 05/05/20 16:50 Blood Glucose Check, Bedside [RC] QIDACANDBED Oxygen Therapy [RC] PRN Up With Assistance [RC] ASDIRECTED VTE/DVT Education [RC] Vital Signs [RC] Q4H Acetaminophen [TylenoL] 650 mg PO Q4H PRN Albuterol/Ipratropium [DuoNeb 3.0-0.5 MG/3 ML] 3 ml NEB Q4H PRN Dextrose 50% in Water 50 ml IV ASDIRECTED PRN Docusate Sodium [Colace] 100 mg PO BID PRN Glucagon,Human Recombinant [GlucaGen] 1 mg IM ASDIRECTED PRN Ondansetron [Zofran ODT] 4 mg PO Q6H PRN oxyCODONE 5 mg PO Q4H PRN Glucose Management Sub Q Reflex [OM.PC] Click to Edit Resuscitation Status Routine 05/05/20 16:51 Cardiac Monitoring [RC] CONTINUOUS Pulse Oximetry [RC] CONTINUOUS 05/05/20 16:55 Diabetes Education [RC] Click to Edit RT Aerosol Therapy [RC] ASDIRECTED 05/05/20 Dinner Consistent Carbohydrate Diet [DIET] Enoxaparin [Lovenox] 40 mg SUBCUT DAILY Sodium Chloride 0.9% [Normal Saline] 1,000 ml IV ASDIRECTED dexAMETHasone [Dexamethasone] 6 mg IVPUSH DAILY 05/05/20 17:21 Chest Physiotherapy [RT Chest Physiotherapy] [RC] ASDIRECTED RT Incentive Spirometry [RC] ASDIRECTED 05/05/20 18:00 Azithromycin [Zithromax] 500 mg Sodium Chloride 0.9% [Normal Saline (AdvBag)] 250 ml IV Q24H 05/05/20 19:42 Influenza Vaccine Charge [RC] .DISCHARGE 05/05/20 21:00 Temazepam [Restoril] 15 mg PO BEDTIME PRN 05/05/20 22:34 Codeine/Promethazine [Phenergan with Codeine] 5 ml PO Q6HR PRN 05/06/20 05:39 CBC WITH AUTO DIFF [HEME] AM 05/06/20 09:00 Aspirin [Ecotrin] 325 mg PO DAILY DULoxetine [Cymbalta] 60 mg PO DAILY Ezetimibe [Zetia] 10 mg PO DAILY Insulin Lispro [HumaLOG] See Protocol SUBCUT TIDPC lisinopriL [Prinivil] 5 mg PO DAILY - Plan Plan:: The patient is a 64-year-old lady who has been admitted to acute inpatient hospitalization due to pneumonia likely associated with COVID-19. The patient will be started on dexamethasone 6 mg IV daily. I have also elected to start the patient on azithromycin 500 mg IV daily. She is a diabetic and therefore will be kept on insulin sliding scale as well as ADA diet. The patient's oxygen will be monitored and she will be kept on oxygen to help keep her saturations around 90 to 92%. I have discontinued her antidiabetic medication for now. The patient also has thrombocytosis and as a result of this I placed the patient on antiplatelet agents. The patient also be anticoagulated with the use of Lovenox for 40 mg subcu daily. I have also ordered repeat laboratory testing for the patient. I anticipate the patient should be in the hospital 3 to 5 days. 05/06/2020 The patient is a 64-year-old lady who is under treatment for pneumonia versus pneumonitis likely secondary to COVID-19. The patient has been recommended to continue with oxygen to keep her saturations around 90 to 92%. She is also on a diabetic diet and this will be continued along with sliding scale insulin for her. The patient is on azithromycin and this will be continued. I have also placed the patient on 1 full aspirin a day secondary to her thrombocytosis. The patient has been recommended to have this worked up as an outpatient if this continues. Patient should be appropriate for discharge in 2 to 3 days. She has been encouraged to ambulate. The patient will also be kept on DVT prophylaxis.
[2020-05-06] MEDS: Aspirin 325 MG Tab.EC PO SCH (09:02)
[2020-05-06] MEDS: DULoxetine 30 MG Cap PO SCH (09:02)
[2020-05-06] MEDS: Ezetimibe 10 MG Tab PO SCH (09:04)
[2020-05-06] MEDS: Enoxaparin 40 MG/0.4 ML Syringe SUBCUT SCH (09:04)
[2020-05-06] MEDS: Insulin Lispro 100 Units/ML 3 ML Vial SUBCUT SCH ×3 (09:05→19:30)
[2020-05-06] MEDS: Lisinopril 5 MG Tab PO SCH (09:12)
[2020-05-06] MEDS: Loratadine 10 MG Tab PO SCH (11:37)
[2020-05-06] MEDS ORDERED: cloNIDine 0.1 MG Tab PO PRN (12:05)
[2020-05-06] MEDS: Dexamethasone 4 MG Tab PO SCH (17:23)
[2020-05-06] MEDS: Azithromycin 500 MG in Sodium Chloride 0.9% 250 ML IV SCH (17:24)
[2020-05-06] MEDS ORDERED: Dexamethasone 4 MG/ML SDV IVPUSH SCH (18:00)
[2020-05-06] MEDS: Codeine/Promethazine 10-6.25 MG/5 ML Syrup 5 ML UD Cup PO PRN (21:00)
[2020-05-07] MEDS: Codeine/Promethazine 10-6.25 MG/5 ML Syrup 5 ML UD Cup PO PRN ×2 (04:57→21:31)
--- NOTE | 2020-05-07 08:13 | PCM.PN ---
- General Info Date of Service: 05/07/20 Admission Dx/Problem (Free Text): Admission Diagnosis/Problem Admission Diagnosis/Problem Hypoxia, COVID-19 related pneumonia Subjective Update: The patient is doing much better today. She has been tolerating the remdesivir. The patient says that her breathing has improved. She has also been able to tolerate her diet. Functional Status: Reports: Pain Controlled, Tolerating Diet - Review of Systems General: Reports: Weakness, Fatigue HEENT: Reports: No Symptoms Pulmonary: Reports: Shortness of Breath Cardiovascular: Reports: No Symptoms Gastrointestinal: Reports: No Symptoms Genitourinary: Reports: No Symptoms Musculoskeletal: Reports: No Symptoms Skin: Reports: No Symptoms Neurological: Reports: No Symptoms Psychiatric: Reports: No Symptoms - Patient Data Vitals - Most Recent: Last Vital Signs Temp 35.9 C L 05/07/20 04:00 Pulse 64 05/07/20 04:01 Resp 18 05/07/20 04:00 BP 152/84 H 05/07/20 04:00 Pulse Ox 88 L 05/07/20 06:14 Weight - Most Recent: 155.129 kg I&O - Last 24 Hours: Intake & Output 05/06/20 05/07/20 05/07/20 22:59 06:59 14:59 Intake Total 1000 1000 Output Total 1250 700 Balance -250 300 Lab Results Last 24 Hours: Laboratory Results - last 24 hr 05/06/20 05/06/20 05/06/20 Range/Units 11:34 17:01 19:25 WBC (3.98-10.04) K/mm3 RBC (3.98-5.22) M/mm3 Hgb (11.2-15.7) gm/dl Hct (34.1-44.9) % MCV (79.4-94.8) fl MCH (25.6-32.2) pg MCHC (32.2-35.5) g/dl RDW Std Deviation (36.4-46.3) fL Plt Count (182-369) K/mm3 MPV (9.4-12.3) fl Neut % (Auto) (34.0-71.1) % Lymph % (Auto) (19.3-51.7) % [place] % (Auto) (4.7-12.5) % Eos % (Auto) (0.7-5.8) Baso % (Auto) (0.1-1.2) % Neut # (Auto) (1.56-6.13) K/mm3 Lymph # (Auto) (1.18-3.74) K/mm3 [place] # (Auto) (0.24-0.36) K/mm3 Eos # (Auto) (0.04-0.36) K/mm3 Baso # (Auto) (0.01-0.08) K/mm3 Manual Slide Review D-Dimer, Quantitative (0.19-0.50) mg/L Sodium (136-145) mEq/L Potassium (3.5-5.1) mEq/L Chloride (98-107) mEq/L Carbon Dioxide (21-32) mEq/L Anion Gap (5-15) BUN (7-18) mg/dL Creatinine (0.55-1.02) mg/dL Est Cr Clr Drug Dosing mL/min Estimated GFR (MDRD) (>60) mL/min BUN/Creatinine Ratio (14-18) Glucose (80-115) mg/dL POC Glucose 154 H 167 H (80-115) mg/dL Calcium (8.5-10.1) mg/dL Total Bilirubin (0.2-1.0) mg/dL AST (15-37) U/L ALT (14-59) U/L Alkaline Phosphatase (46-116) U/L C-Reactive Protein (<1.0) mg/dL Total Protein (6.4-8.2) g/dl Albumin (3.4-5.0) g/dl Globulin gm/dL Albumin/Globulin Ratio (1-2) MRSA (PCR) Negative 05/06/20 05/07/20 05/07/20 Range/Units 21:49 05:22 05:22 WBC 10.23 H (3.98-10.04) K/mm3 RBC 4.67 (3.98-5.22) M/mm3 Hgb 13.3 (11.2-15.7) gm/dl Hct 42.0 (34.1-44.9) % MCV 89.9 (79.4-94.8) fl MCH 28.5 (25.6-32.2) pg MCHC 31.7 L (32.2-35.5) g/dl RDW Std Deviation 49.3 H (36.4-46.3) fL Plt Count 997 H* (182-369) K/mm3 MPV 10.3 (9.4-12.3) fl Neut % (Auto) 83.2 H (34.0-71.1) % Lymph % (Auto) 10.3 L (19.3-51.7) % [place] % (Auto) 6.1 (4.7-12.5) % Eos % (Auto) 0 L (0.7-5.8) Baso % (Auto) 0.1 (0.1-1.2) % Neut # (Auto) 8.52 H (1.56-6.13) K/mm3 Lymph # (Auto) 1.05 L (1.18-3.74) K/mm3 [place] # (Auto) 0.62 H (0.24-0.36) K/mm3 Eos # (Auto) 0.00 L (0.04-0.36) K/mm3 Baso # (Auto) 0.01 (0.01-0.08) K/mm3 Manual Slide Review Abnormal smear D-Dimer, Quantitative 0.51 H (0.19-0.50) mg/L Sodium (136-145) mEq/L Potassium (3.5-5.1) mEq/L Chloride (98-107) mEq/L Carbon Dioxide (21-32) mEq/L Anion Gap (5-15) BUN (7-18) mg/dL Creatinine (0.55-1.02) mg/dL Est Cr Clr Drug Dosing mL/min Estimated GFR (MDRD) (>60) mL/min BUN/Creatinine Ratio (14-18) Glucose (80-115) mg/dL POC Glucose 232 H (80-115) mg/dL Calcium (8.5-10.1) mg/dL Total Bilirubin (0.2-1.0) mg/dL AST (15-37) U/L ALT (14-59) U/L Alkaline Phosphatase (46-116) U/L C-Reactive Protein (<1.0) mg/dL Total Protein (6.4-8.2) g/dl Albumin (3.4-5.0) g/dl Globulin gm/dL Albumin/Globulin Ratio (1-2) MRSA (PCR) 05/07/20 05/07/20 Range/Units 05:22 06:56 WBC (3.98-10.04) K/mm3 RBC (3.98-5.22) M/mm3 Hgb (11.2-15.7) gm/dl Hct (34.1-44.9) % MCV (79.4-94.8) fl MCH (25.6-32.2) pg MCHC (32.2-35.5) g/dl RDW Std Deviation (36.4-46.3) fL Plt Count (182-369) K/mm3 MPV (9.4-12.3) fl Neut % (Auto) (34.0-71.1) % Lymph % (Auto) (19.3-51.7) % [place] % (Auto) (4.7-12.5) % Eos % (Auto) (0.7-5.8) Baso % (Auto) (0.1-1.2) % Neut # (Auto) (1.56-6.13) K/mm3 Lymph # (Auto) (1.18-3.74) K/mm3 [place] # (Auto) (0.24-0.36) K/mm3 Eos # (Auto) (0.04-0.36) K/mm3 Baso # (Auto) (0.01-0.08) K/mm3 Manual Slide Review D-Dimer, Quantitative (0.19-0.50) mg/L Sodium 137 (136-145) mEq/L Potassium 4.0 (3.5-5.1) mEq/L Chloride 103 (98-107) mEq/L Carbon Dioxide 24 (21-32) mEq/L Anion Gap 14.0 (5-15) BUN 23 H (7-18) mg/dL Creatinine 1.0 (0.55-1.02) mg/dL Est Cr Clr Drug Dosing 53.20 mL/min Estimated GFR (MDRD) 56 (>60) mL/min BUN/Creatinine Ratio 23.0 H (14-18) Glucose 217 H (80-115) mg/dL POC Glucose 204 H (80-115) mg/dL Calcium 8.6 (8.5-10.1) mg/dL Total Bilirubin 0.8 (0.2-1.0) mg/dL AST 23 (15-37) U/L ALT 38 (14-59) U/L Alkaline Phosphatase 69 (46-116) U/L C-Reactive Protein 1.9 H* (<1.0) mg/dL Total Protein 7.2 (6.4-8.2) g/dl Albumin 3.4 (3.4-5.0) g/dl Globulin 3.8 gm/dL Albumin/Globulin Ratio 0.9 L (1-2) MRSA (PCR) Camilo Results Last 24 Hours: Microbiology 05/05/20 12:05 Aerobic Blood Culture - Preliminary Blood - Venous - Lab Draw NO GROWTH AFTER 1 DAY Anaerobic Blood Culture - Preliminary NO GROWTH AFTER 1 DAY 05/05/20 12:15 Aerobic Blood Culture - Preliminary Blood - Venous NO GROWTH AFTER 1 DAY Anaerobic Blood Culture - Preliminary NO GROWTH AFTER 1 DAY Med Orders - Current: Current Medications Acetaminophen (Tylenol) 650 mg PO Q4H PRN PRN Reason: Pain (Mild 1-3)/fever Last Admin: 05/06/20 01:13 Dose: 650 mg Documented by: Albuterol/Ipratropium (Duoneb 3.0-0.5 Mg/3 Ml) 3 ml NEB Q4H PRN PRN Reason: Shortness Of Breath/wheezing Aspirin (Ecotrin) 325 mg PO DAILY [facility] Last Admin: 05/06/20 09:02 Dose: 325 mg Documented by: Clonidine HCl (Catapres) 0.1 mg PO Q8H PRN PRN Reason: Hypertension Last Admin: 05/06/20 12:21 Dose: 0.1 mg Documented by: Dexamethasone (Dexamethasone) 6 mg PO Q24H [facility] Stop: 05/14/20 18:01 Last Admin: 05/06/20 17:23 Dose: 6 mg Documented by: Dextrose/Water (Dextrose 50% In Water) 50 ml IV ASDIRECTED PRN PRN Reason: Hypoglycemia Docusate Sodium (Colace) 100 mg PO BID PRN PRN Reason: Constipation Duloxetine HCl (Cymbalta) 60 mg PO DAILY [facility] Last Admin: 05/06/20 09:02 Dose: 60 mg Documented by: Ezetimibe (Zetia) 10 mg PO DAILY [facility] Last Admin: 05/06/20 09:04 Dose: 10 mg Documented by: Enoxaparin Sodium (Lovenox) 40 mg SUBCUT DAILY [facility] Last Admin: 05/06/20 09:04 Dose: 40 mg Documented by: Glucagon (Glucagen) 1 mg IM ASDIRECTED PRN PRN Reason: Hypoglycemia Azithromycin 500 mg/ Sodium (Chloride) 250 mls @ 250 mls/hr IV Q24H [facility] Last Admin: 05/06/20 17:24 Dose: 250 mls/hr Documented by: Insulin Human Lispro (Humalog) 0 unit SUBCUT [facility]; Protocol Last Admin: 05/06/20 19:30 Dose: 2 units Documented by: Lisinopril (Prinivil) 5 mg PO DAILY [facility] Last Admin: 05/06/20 09:12 Dose: 5 mg Documented by: Loratadine (Claritin) 10 mg PO DAILY [facility] Last Admin: 05/06/20 11:37 Dose: 10 mg Documented by: Ondansetron HCl (Zofran Odt) 4 mg PO Q6H PRN PRN Reason: nausea, able to take PO Oxycodone HCl (Oxycodone) 5 mg PO Q4H PRN PRN Reason: Pain (moderate 4-6) Promethazine HCl/Codeine (Phenergan With Codeine) 5 ml PO Q6HR PRN PRN Reason: Cough Last Admin: 05/07/20 04:57 Dose: 5 ml Documented by: Sodium Chloride (Saline Flush) 10 ml FLUSH ONETIME PRN PRN Reason: Keep Vein Open Last Admin: 05/05/20 15:03 Dose: 10 ml Documented by: Temazepam (Restoril) 15 mg PO BEDTIME PRN PRN Reason: Sleep Discontinued Medications Aspirin (Aspirin) 324 mg PO ONETIME ONE Stop: 05/05/20 14:14 Last Admin: 05/05/20 14:31 Dose: 324 mg Documented by: Azithromycin (Zithromax) 500 mg IV Q24H [facility] Last Admin: 05/05/20 19:05 Dose: Not Given Documented by: Dexamethasone (Dexamethasone) 6 mg IVPUSH DAILY [facility] Last Admin: 05/05/20 18:27 Dose: 6 mg Documented by: Dexamethasone (Dexamethasone) 6 mg IVPUSH Q24H [facility] Stop: 05/14/20 18:01 Sodium Chloride (Normal Saline) 45 mls @ 40 mls/hr IV ASDIRECTED [facility] Last Admin: 05/05/20 15:03 Dose: 40 mls/hr Documented by: Sodium Chloride (Normal Saline) 1,000 mls @ 75 mls/hr IV ASDIRECTED BLU Last Admin: 05/06/20 07:33 Dose: 75 mls/hr Documented by: Influenza Virus Vaccine (Fluzone Quad Syringe) 60 mcg IM .ONCE ONE Stop: 05/05/20 20:01 Iopamidol (Isovue-370 (76%)) 100 ml IVPUSH ONETIME ONE Stop: 05/05/20 14:25 Last Admin: 05/05/20 15:03 Dose: 100 ml Documented by: Promethazine HCl/Codeine (Phenergan With Codeine) 5 ml PO Q6HR BLU - Exam Quality Assessment: Supplemental Oxygen, DVT Prophylaxis General: Alert, Oriented, Cooperative HEENT: Pupils Equal, Pupils Reactive, EOMI, Mucous Membr. Moist/[place] Neck: Supple, Trachea Midline Lungs: Clear to Auscultation, Normal Respiratory Effort Cardiovascular: Regular Rate, Regular Rhythm GI/Abdominal Exam: Normal Bowel Sounds, Soft, No Distention (Female) Exam: Deferred Back Exam: Normal Inspection, Full Range of Motion Extremities: Normal Inspection, No Pedal Edema Skin: Warm, Dry, Intact Neurological: No New Focal Deficit Psy/Mental Status: Alert, Normal Affect Sepsis Event Note - Evaluation Sepsis Screening Result: No Definite Risk - Focused Exam Vital Signs: Vital Signs Temp Pulse Resp BP Pulse Ox Pulse Ox 05/07/20 06:14 88 L 05/07/20 04:01 64 92 L 05/07/20 04:00 35.9 C L 18 152/84 H 90 L 05/07/20 03:00 78 96 05/07/20 02:00 74 99 05/07/20 01:00 70 93 L 05/07/20 00:00 35.9 C L 18 125/65 89 L 05/06/20 22:01 89 93 L 05/06/20 21:01 95 95 05/06/20 20:51 35.9 C L 20 150/74 H 94 L - Problem List & Annotations (1) Pneumonia SNOMED Code(s): 966528324 Code(s): J18.9 - PNEUMONIA, UNSPECIFIED ORGANISM Status: Acute Priority: High Current Visit: Yes Qualifiers: Pneumonia type: due to unspecified organism Laterality: unspecified laterality Lung location: unspecified part of lung Qualified Code(s): J18.9 - Pneumonia, unspecified organism Annotation/Comment:: COVID-19 (2) Reactive thrombocytosis SNOMED Code(s): 795558711 Code(s): R79.89 - OTHER SPECIFIED ABNORMAL FINDINGS OF BLOOD CHEMISTRY Status: Acute Priority: High Current Visit: Yes (3) COVID-19 SNOMED Code(s): 493194427 Code(s): U07.1 - COVID-19 Status: Acute Priority: High Current Visit: Yes (4) Diabetes mellitus type II, non insulin dependent SNOMED Code(s): 44333778 Code(s): E11.9 - TYPE 2 DIABETES MELLITUS WITHOUT COMPLICATIONS Status: Chronic Priority: High Current Visit: Yes (5) Hypertension SNOMED Code(s): 30984614 Code(s): I10 - ESSENTIAL (PRIMARY) HYPERTENSION Status: Chronic Priority: Medium Current Visit: Yes Qualifiers: Hypertension type: essential hypertension Qualified Code(s): I10 - Essential (primary) hypertension (6) Morbid obesity SNOMED Code(s): 944580720 Code(s): E66.01 - MORBID (SEVERE) OBESITY DUE TO EXCESS CALORIES Status: Acute Priority: High Current Visit: Yes Annotation/Comment:: 54.7 - Problem List Review Problem List Initiated/Reviewed/Updated: Yes - My Orders Last 24 Hours: My Active Orders 05/06/20 09:00 Aspirin [Ecotrin] 325 mg PO DAILY DULoxetine [Cymbalta] 60 mg PO DAILY Ezetimibe [Zetia] 10 mg PO DAILY Insulin Lispro [HumaLOG] See Protocol SUBCUT [facility] lisinopriL [Prinivil] 5 mg PO DAILY 05/06/20 11:30 Loratadine [Claritin] 10 mg PO DAILY 05/06/20 12:05 cloNIDine [Catapres] 0.1 mg PO Q8H PRN 05/06/20 18:00 dexAMETHasone 6 mg PO Q24H - Plan Plan:: The patient is a 64-year-old lady who has been admitted to acute inpatient hospitalization due to pneumonia likely associated with COVID-19. The patient will be started on dexamethasone 6 mg IV daily. I have also elected to start the patient on azithromycin 500 mg IV daily. She is a diabetic and therefore will be kept on insulin sliding scale as well as ADA diet. The patient's oxygen will be monitored and she will be kept on oxygen to help keep her saturations around 90 to 92%. I have discontinued her antidiabetic medication for now. The patient also has thrombocytosis and as a result of this I placed the patient on antiplatelet agents. The patient also be anticoagulated with the use of Lovenox for 40 mg subcu daily. I have also ordered repeat laboratory testing for the patient. I anticipate the patient should be in the hospital 3 to 5 days. 05/06/2020 The patient is a 64-year-old lady who is under treatment for pneumonia versus pneumonitis likely secondary to COVID-19. The patient has been recommended to continue with oxygen to keep her saturations around 90 to 92%. She is also on a diabetic diet and this will be continued along with sliding scale insulin for her. The patient is on azithromycin and this will be continued. I have also placed the patient on 1 full aspirin a day secondary to her thrombocytosis. The patient has been recommended to have this worked up as an outpatient if this continues. Patient should be appropriate for discharge in 2 to 3 days. She has been encouraged to ambulate. The patient will also be kept on DVT prophylaxis. 05/07/2020 The patient is a 64-year-old lady who was admitted to acute hospitalization on 05/05/2020. This was for COVID-19 pneumonia. The patient is currently on remdesivir and this will be continued. The patient will be kept on oxygen to help keep her saturations between 90 and 92%. Also she has been encouraged to ambulate. The patient be kept on her current diet as tolerated. Patient should be appropriate for discharge to her assisted living center after completion of the remdesivir. I recommended that the patient follow-up with her primary care physician for her. Repeat laboratory studies have been ordered.
[2020-05-07] MEDS: Enoxaparin 40 MG/0.4 ML Syringe SUBCUT SCH (08:36)
[2020-05-07] MEDS: Aspirin 325 MG Tab.EC PO SCH (08:37)
[2020-05-07] MEDS: Loratadine 10 MG Tab PO SCH (08:37)
[2020-05-07] MEDS: Ezetimibe 10 MG Tab PO SCH (08:40)
[2020-05-07] MEDS: Lisinopril 5 MG Tab PO SCH (08:40)
[2020-05-07] MEDS: DULoxetine 30 MG Cap PO SCH (08:40)
[2020-05-07] MEDS: Insulin Lispro 100 Units/ML 3 ML Vial SUBCUT SCH ×3 (08:52→18:17)
[2020-05-07] MEDS: Nystatin Topical Powder 15 GM Bottle TOP PRN (16:17)
[2020-05-07] MEDS: Azithromycin 500 MG in Sodium Chloride 0.9% 250 ML IV SCH (17:43)
[2020-05-07] MEDS: Dexamethasone 4 MG Tab PO SCH (17:43)
[2020-05-08] MEDS: Loratadine 10 MG Tab PO SCH (08:07)
[2020-05-08] MEDS: Aspirin 325 MG Tab.EC PO SCH (08:07)
[2020-05-08] MEDS: DULoxetine 30 MG Cap PO SCH (08:07)
[2020-05-08] MEDS: Lisinopril 5 MG Tab PO SCH (08:07)
[2020-05-08] MEDS: Ezetimibe 10 MG Tab PO SCH (08:07)
[2020-05-08] MEDS: Enoxaparin 40 MG/0.4 ML Syringe SUBCUT SCH (08:10)
[2020-05-08] MEDS: Insulin Lispro 100 Units/ML 3 ML Vial SUBCUT SCH (08:11)
--- NOTE | 2020-05-08 08:12 | PCM.DCSUM1 ---
Discharge Summary - Hospital Course HPI Initial Comments: Patient was admitted secondary to pneumonitis associated with COVID-19. Diagnosis: Stroke: No - Discharge Data Discharge Date: 05/08/20 Discharge Disposition: DC/Tfer to Medicaid [facility] Condition: Good - Referral to Home Health Primary Care Physician: Shea Cardona NP - Discharge Diagnosis/Problem(s) (1) Pneumonia SNOMED Code(s): 661464928 ICD Code: J18.9 - PNEUMONIA, UNSPECIFIED ORGANISM Status: Resolved Priority: High Problem Details: COVID-19 Qualifiers: Pneumonia type: due to unspecified organism Laterality: unspecified laterality Lung location: unspecified part of lung Qualified Code(s): J18.9 - Pneumonia, unspecified organism (2) Reactive thrombocytosis SNOMED Code(s): 768258917 ICD Code: R79.89 - OTHER SPECIFIED ABNORMAL FINDINGS OF BLOOD CHEMISTRY Status: Chronic Priority: High (3) COVID-19 SNOMED Code(s): 870079434 ICD Code: U07.1 - COVID-19 Status: Resolved Priority: High (4) Diabetes mellitus type II, non insulin dependent SNOMED Code(s): 28293570 ICD Code: E11.9 - TYPE 2 DIABETES MELLITUS WITHOUT COMPLICATIONS Status: Chronic Priority: High (5) Hypertension SNOMED Code(s): 26249537 ICD Code: I10 - ESSENTIAL (PRIMARY) HYPERTENSION Status: Chronic Priority: Medium Qualifiers: Hypertension type: essential hypertension Qualified Code(s): I10 - Essential (primary) hypertension (6) Morbid obesity SNOMED Code(s): 645558043 ICD Code: E66.01 - MORBID (SEVERE) OBESITY DUE TO EXCESS CALORIES Status: Chronic Priority: High Problem Details: 54.7 - Patient Summary/Data Hospital Course: The patient is a 61-year-old lady who had presented to the emergency department about concerns with her ongoing COVID-19 symptoms. The patient had been diagnosed with COVID-19 on April 14, 2020 and had been in 2 weeks of isolation. Patient reported that she had a cough. Patient is currently in assisted living and she was admitted to acute hospitalization. The patient was started dexamethasone 6 mg IV then changed to p.o. daily. The patient was not started on remdesivir as that she was outside the window for treatment. The patient was thought to either have pneumonia or pneumonitis related to Covid. The patient also had been placed on a azithromycin 500 mg IV daily. The patient tolerated this well. She is also diabetic and had been on glucose checks as well as leading scale insulin. He was noted throughout the course of hospitalization that the patient had very elevated levels of her platelets at 997,000 and by day of discharge had resolved down to 855,000. The patient was kept on aspirin as an antiplatelet agent to help prevent thrombosis. The patient had a CT scan obtained on May 05, 2020 which showed extensive groundglass opacities in both lung rachel with multifocal pneumonitis. She was also noted to have mild mediastinal adenopathy bilaterally. Patient also has been discharged on dexamethasone 6 mg p.o. daily for 5 more days. I also gave the patient promethazine with codeine to take 5 mL every 6 hours as needed for cough. She also has a azithromycin 500 mg p.o. to continue for another 5 days.The patient had been continued on her home medications. The patient was noted to have some episodes of hypoxia that likely associated with obesity hypoventilation syndrome. While the patient was awake and upright she did not require oxygen. The patient has been recommended to have diet as tolerated. She is also to have activity as tolerated. The patient is to follow-up with her primary care physician. She has been discharged from acute hospitalization with recommendations listed above. - Patient Instructions Diet: Diabetic Diet Activity: As Tolerated - Discharge Plan *PRESCRIPTION DRUG MONITORING PROGRAM REVIEWED*: Not Applicable *COPY OF PRESCRIPTION DRUG MONITORING REPORT IN PATIENT PAULINO: Not Applicable Prescriptions/Med Rec: dexAMETHasone [Dexamethasone] 6 mg PO Q24H #5 tablet Codeine/Promethazine [Phenergan with Codeine] 5 ml PO Q6HR PRN #120 ml PRN Reason: Cough Azithromycin [Zithromax] 500 mg PO Q24H #5 adv Home Medications: Home Meds Cetirizine [ZyrTEC] 10 mg PO DAILY 05/05/20 [History] Cyproheptadine HCl 4 mg PO DAILY PRN 05/05/20 [History] DULoxetine [Cymbalta] 60 mg PO DAILY 05/05/20 [History] Empagliflozin [Jardiance] 25 mg PO DAILY 05/05/20 [History] Ezetimibe 10 mg PO DAILY 05/05/20 [History] Fluconazole [Diflucan] 150 mg PO DAILY 05/05/20 [History] Naproxen 500 mg PO Q6HR PRN 05/05/20 [History] Nystatin [Nystatin Ointment] 1 applic TOP DAILY 05/05/20 [History] lisinopriL [Lisinopril] 5 mg PO DAILY 05/05/20 [History] metFORMIN [Glucophage XR] 1,000 mg PO QAM 05/05/20 [History] sitaGLIPtin Phosphate [Januvia] 50 mg PO DAILY 05/05/20 [History] Cetirizine [ZyrTEC] 10 mg PO DAILY 05/06/20 [History] Aspirin [Ecotrin EC] 325 mg PO DAILY tab.ec 05/08/20 [Rx] Azithromycin [Zithromax] 500 mg PO Q24H #5 adv 05/08/20 [Rx] Codeine/Promethazine [Phenergan with Codeine] 5 ml PO Q6HR PRN #120 ml 05/08/20 [Rx] Insulin Lispro [HumaLOG] 0 unit SUBCUT TIDPC vial 05/08/20 [Rx] dexAMETHasone [Dexamethasone] 6 mg PO Q24H #5 tablet 05/08/20 [Rx] Patient Handouts: COVID-19 Frequently Asked Questions, COVID-19, COVID-19: How to Protect Yourself and Others - CDC, Community-Acquired Pneumonia, Adult, [id number], Prevent the Spread of COVID-19 if You Are Sick - CDC Forms: ED Department Discharge Referrals: Shea Cardona, [facility] [Primary Care Provider] - - Discharge Summary/Plan Comment DC Time >30 min.: Yes - General Info Date of Service: 05/08/20 Admission Dx/Problem (Free Text: Admission Diagnosis/Problem Admission Diagnosis/Problem Hypoxia, COVID-19 related pneumonia Subjective Update: The patient is doing better today. She has been tolerating her diet. She feels like she can safely go home. Functional Status: Reports: Pain Controlled, Tolerating Diet - Review of Systems General: Reports: No Symptoms HEENT: Reports: No Symptoms Pulmonary: Reports: No Symptoms Cardiovascular: Reports: No Symptoms Gastrointestinal: Reports: No Symptoms Genitourinary: Reports: No Symptoms Musculoskeletal: Reports: No Symptoms Skin: Reports: No Symptoms Neurological: Reports: No Symptoms Psychiatric: Reports: No Symptoms - Patient Data Vitals - Most Recent: Last Vital Signs Temp 35.9 C L 05/08/20 04:00 Pulse 69 05/08/20 04:00 Resp 16 05/08/20 04:00 BP 154/67 H 05/08/20 08:07 Pulse Ox 95 05/08/20 04:00 Weight - Most Recent: 157.7 kg I&O - Last 24 hours: Intake & Output 05/07/20 05/08/20 05/08/20 22:59 06:59 14:59 Intake Total 1530 Balance 1530 Lab Results - Last 24 hrs: Laboratory Results - last 24 hr 05/07/20 05/07/20 05/07/20 Range/Units 11:19 16:26 21:10 WBC (3.98-10.04) K/mm3 RBC (3.98-5.22) M/mm3 Hgb (11.2-15.7) gm/dl Hct (34.1-44.9) % MCV (79.4-94.8) fl MCH (25.6-32.2) pg MCHC (32.2-35.5) g/dl RDW Std Deviation (36.4-46.3) fL Plt Count (182-369) K/mm3 MPV (9.4-12.3) fl Neut % (Auto) (34.0-71.1) % Lymph % (Auto) (19.3-51.7) % [place] % (Auto) (4.7-12.5) % Eos % (Auto) (0.7-5.8) Baso % (Auto) (0.1-1.2) % Neut # (Auto) (1.56-6.13) K/mm3 Lymph # (Auto) (1.18-3.74) K/mm3 [place] # (Auto) (0.24-0.36) K/mm3 Eos # (Auto) (0.04-0.36) K/mm3 Baso # (Auto) (0.01-0.08) K/mm3 Manual Slide Review D-Dimer, Quantitative (0.19-0.50) mg/L Sodium (136-145) mEq/L Potassium (3.5-5.1) mEq/L Chloride (98-107) mEq/L Carbon Dioxide (21-32) mEq/L Anion Gap (5-15) BUN (7-18) mg/dL Creatinine (0.55-1.02) mg/dL Est Cr Clr Drug Dosing mL/min Estimated GFR (MDRD) (>60) mL/min BUN/Creatinine Ratio (14-18) Glucose (80-115) mg/dL POC Glucose 163 H 142 H 220 H (80-115) mg/dL Calcium (8.5-10.1) mg/dL Total Bilirubin (0.2-1.0) mg/dL AST (15-37) U/L ALT (14-59) U/L Alkaline Phosphatase (46-116) U/L C-Reactive Protein (<1.0) mg/dL Total Protein (6.4-8.2) g/dl Albumin (3.4-5.0) g/dl Globulin gm/dL Albumin/Globulin Ratio (1-2) 05/08/20 05/08/20 05/08/20 Range/Units 04:31 04:31 04:31 WBC 8.95 (3.98-10.04) K/mm3 RBC 4.63 (3.98-5.22) M/mm3 Hgb 13.2 (11.2-15.7) gm/dl Hct 41.4 (34.1-44.9) % MCV 89.4 (79.4-94.8) fl MCH 28.5 (25.6-32.2) pg MCHC 31.9 L (32.2-35.5) g/dl RDW Std Deviation 48.7 H (36.4-46.3) fL Plt Count 855 H* D (182-369) K/mm3 MPV 10.3 (9.4-12.3) fl Neut % (Auto) 82.1 H (34.0-71.1) % Lymph % (Auto) 10.6 L (19.3-51.7) % [place] % (Auto) 6.8 (4.7-12.5) % Eos % (Auto) 0 L (0.7-5.8) Baso % (Auto) 0.1 (0.1-1.2) % Neut # (Auto) 7.34 H (1.56-6.13) K/mm3 Lymph # (Auto) 0.95 L (1.18-3.74) K/mm3 [place] # (Auto) 0.61 H (0.24-0.36) K/mm3 Eos # (Auto) 0.00 L (0.04-0.36) K/mm3 Baso # (Auto) 0.01 (0.01-0.08) K/mm3 Manual Slide Review Abnormal smear D-Dimer, Quantitative 0.38 (0.19-0.50) mg/L Sodium 136 (136-145) mEq/L Potassium 4.3 (3.5-5.1) mEq/L Chloride 103 (98-107) mEq/L Carbon Dioxide 25 (21-32) mEq/L Anion Gap 12.3 (5-15) BUN 22 H (7-18) mg/dL Creatinine 1.0 (0.55-1.02) mg/dL Est Cr Clr Drug Dosing 53.20 mL/min Estimated GFR (MDRD) 56 (>60) mL/min BUN/Creatinine Ratio 22.0 H (14-18) Glucose 218 H (80-115) mg/dL POC Glucose (80-115) mg/dL Calcium 8.4 L (8.5-10.1) mg/dL Total Bilirubin 0.9 (0.2-1.0) mg/dL AST 27 (15-37) U/L ALT 39 (14-59) U/L Alkaline Phosphatase 59 (46-116) U/L C-Reactive Protein 1.4 H* (<1.0) mg/dL Total Protein 6.8 (6.4-8.2) g/dl Albumin 3.3 L (3.4-5.0) g/dl Globulin 3.5 gm/dL Albumin/Globulin Ratio 0.9 L (1-2) 05/08/20 Range/Units 06:11 WBC (3.98-10.04) K/mm3 RBC (3.98-5.22) M/mm3 Hgb (11.2-15.7) gm/dl Hct (34.1-44.9) % MCV (79.4-94.8) fl MCH (25.6-32.2) pg MCHC (32.2-35.5) g/dl RDW Std Deviation (36.4-46.3) fL Plt Count (182-369) K/mm3 MPV (9.4-12.3) fl Neut % (Auto) (34.0-71.1) % Lymph % (Auto) (19.3-51.7) % [place] % (Auto) (4.7-12.5) % Eos % (Auto) (0.7-5.8) Baso % (Auto) (0.1-1.2) % Neut # (Auto) (1.56-6.13) K/mm3 Lymph # (Auto) (1.18-3.74) K/mm3 [place] # (Auto) (0.24-0.36) K/mm3 Eos # (Auto) (0.04-0.36) K/mm3 Baso # (Auto) (0.01-0.08) K/mm3 Manual Slide Review D-Dimer, Quantitative (0.19-0.50) mg/L Sodium (136-145) mEq/L Potassium (3.5-5.1) mEq/L Chloride (98-107) mEq/L Carbon Dioxide (21-32) mEq/L Anion Gap (5-15) BUN (7-18) mg/dL Creatinine (0.55-1.02) mg/dL Est Cr Clr Drug Dosing mL/min Estimated GFR (MDRD) (>60) mL/min BUN/Creatinine Ratio (14-18) Glucose (80-115) mg/dL POC Glucose 187 H (80-115) mg/dL Calcium (8.5-10.1) mg/dL Total Bilirubin (0.2-1.0) mg/dL AST (15-37) U/L ALT (14-59) U/L Alkaline Phosphatase (46-116) U/L C-Reactive Protein (<1.0) mg/dL Total Protein (6.4-8.2) g/dl Albumin (3.4-5.0) g/dl Globulin gm/dL Albumin/Globulin Ratio (1-2) YONI Results - Last 24 hrs: Microbiology 05/05/20 12:05 Aerobic Blood Culture - Preliminary Blood - Venous - Lab Draw NO GROWTH AFTER 2 DAYS Anaerobic Blood Culture - Preliminary NO GROWTH AFTER 2 DAYS 05/05/20 12:15 Aerobic Blood Culture - Preliminary Blood - Venous NO GROWTH AFTER 2 DAYS Anaerobic Blood Culture - Preliminary NO GROWTH AFTER 2 DAYS Med Orders - Current: Current Medications Acetaminophen (Tylenol) 650 mg PO Q4H PRN PRN Reason: Pain (Mild 1-3)/fever Last Admin: 05/06/20 01:13 Dose: 650 mg Documented by: Albuterol/Ipratropium (Duoneb 3.0-0.5 Mg/3 Ml) 3 ml NEB Q4H PRN PRN Reason: Shortness Of Breath/wheezing Aspirin (Ecotrin) 325 mg PO DAILY [facility] Last Admin: 05/08/20 08:07 Dose: 325 mg Documented by: Clonidine HCl (Catapres) 0.1 mg PO Q8H PRN PRN Reason: Hypertension Last Admin: 05/06/20 12:21 Dose: 0.1 mg Documented by: Dexamethasone (Dexamethasone) 6 mg PO Q24H [facility] Stop: 05/14/20 18:01 Last Admin: 05/07/20 17:43 Dose: 6 mg Documented by: Dextrose/Water (Dextrose 50% In Water) 50 ml IV ASDIRECTED PRN PRN Reason: Hypoglycemia Docusate Sodium (Colace) 100 mg PO BID PRN PRN Reason: Constipation Duloxetine HCl (Cymbalta) 60 mg PO DAILY [facility] Last Admin: 05/08/20 08:07 Dose: 60 mg Documented by: Ezetimibe (Zetia) 10 mg PO DAILY [facility] Last Admin: 05/08/20 08:07 Dose: 10 mg Documented by: Enoxaparin Sodium (Lovenox) 40 mg SUBCUT DAILY [facility] Last Admin: 05/08/20 08:10 Dose: 40 mg Documented by: Glucagon (Glucagen) 1 mg IM ASDIRECTED PRN PRN Reason: Hypoglycemia Azithromycin 500 mg/ Sodium (Chloride) 250 mls @ 250 mls/hr IV Q24H [facility] Last Admin: 05/07/20 17:43 Dose: 250 mls/hr Documented by: Insulin Human Lispro (Humalog) 0 unit SUBCUT TIDPC [facility]; Protocol Last Admin: 05/07/20 18:17 Dose: Not Given Documented by: Lisinopril (Prinivil) 5 mg PO DAILY [facility] Last Admin: 05/08/20 08:07 Dose: 5 mg Documented by: Loratadine (Claritin) 10 mg PO DAILY [facility] Last Admin: 05/08/20 08:07 Dose: 10 mg Documented by: Loratadine (Claritin) 10 mg PO DAILY [facility] Nystatin (Nystop) 0 gm TOP QID PRN PRN Reason: Itching Last Admin: 05/07/20 16:17 Dose: 1 applic Documented by: Ondansetron HCl (Zofran Odt) 4 mg PO Q6H PRN PRN Reason: nausea, able to take PO Oxycodone HCl (Oxycodone) 5 mg PO Q4H PRN PRN Reason: Pain (moderate 4-6) Promethazine HCl/Codeine (Phenergan With Codeine) 5 ml PO Q6HR PRN PRN Reason: Cough Last Admin: 05/07/20 21:31 Dose: 5 ml Documented by: Sodium Chloride (Saline Flush) 10 ml FLUSH ONETIME PRN PRN Reason: Keep Vein Open Last Admin: 05/05/20 15:03 Dose: 10 ml Documented by: Temazepam (Restoril) 15 mg PO BEDTIME PRN PRN Reason: Sleep Discontinued Medications Aspirin (Aspirin) 324 mg PO ONETIME ONE Stop: 05/05/20 14:14 Last Admin: 05/05/20 14:31 Dose: 324 mg Documented by: Azithromycin (Zithromax) 500 mg IV Q24H [facility] Last Admin: 05/05/20 19:05 Dose: Not Given Documented by: Dexamethasone (Dexamethasone) 6 mg IVPUSH DAILY [facility] Last Admin: 05/05/20 18:27 Dose: 6 mg Documented by: Dexamethasone (Dexamethasone) 6 mg IVPUSH Q24H [facility] Stop: 05/14/20 18:01 Sodium Chloride (Normal Saline) 45 mls @ 40 mls/hr IV ASDIRECTED [facility] Last Admin: 05/05/20 15:03 Dose: 40 mls/hr Documented by: Sodium Chloride (Normal Saline) 1,000 mls @ 75 mls/hr IV ASDIRECTED [facility] Last Admin: 05/06/20 07:33 Dose: 75 mls/hr Documented by: Influenza Virus Vaccine (Fluzone Quad Syringe) 60 mcg IM .ONCE ONE Stop: 05/05/20 20:01 Iopamidol (Isovue-370 (76%)) 100 ml IVPUSH ONETIME ONE Stop: 05/05/20 14:25 Last Admin: 05/05/20 15:03 Dose: 100 ml Documented by: Promethazine HCl/Codeine (Phenergan With Codeine) 5 ml PO Q6HR BLU - Exam Quality Assessment: Reports: DVT Prophylaxis. Denies: Supplemental Oxygen General: Reports: Alert, Oriented, Cooperative, No Acute Distress, Other (Morbidly obese, 56.1 kg/m) HEENT: Reports: Pupils Equal, Pupils Reactive, EOMI, Mucous Membr. Moist/[place] Neck: Reports: Supple, Trachea Midline Lungs: Reports: Clear to Auscultation, Normal Respiratory Effort Cardiovascular: Reports: Regular Rate, Regular Rhythm GI/Abdominal Exam: Normal Bowel Sounds, Soft, Non-Tender, No Distention (Female) Exam: Deferred Rectal (Female) Exam: Deferred Back Exam: Reports: Normal Inspection, Full Range of Motion Extremities: Normal Inspection, No Pedal Edema Skin: Reports: Warm, Dry, Intact Neurological: Reports: No New Focal Deficit Psy/Mental Status: Reports: Alert, Normal Affect, Normal Mood
[2020-05-08] MEDS: Nystatin Topical Powder 15 GM Bottle TOP PRN (08:16)
[2020-05-08] MEDS ORDERED: Loratadine 10 MG Tab PO SCH (09:00)
--- NOTE | 2020-05-12 15:00 | CR ---
PROCEDURE INFORMATION: Exam: XR Chest, 1 View Exam date and time: 05/05/2020 11:28 AM Age: 64 years old Clinical indication: Shortness of breath TECHNIQUE: Imaging protocol: XR of the chest Views: 1 view. COMPARISON: No relevant prior studies available. FINDINGS: Lungs: Possible patchy consolidation in the left lower lobe. Pleural space: Unremarkable. No pleural effusion. No pneumothorax. Heart/Mediastinum: Heart moderately enlarged. Prominent right and left hilum most likely due to central pulmonary vascular congestion. Bones/joints: Unremarkable. Other: Motion artifact. IMPRESSION: 1. Limited study due to body habitus and motion. 2. Cardiomegaly with pulmonary vascular congestion suggesting fluid overload. 3. Possible developing consolidation or edema in the left lower lobe. 4. Clinical correlation and follow-up recommended. Thank you for allowing us to participate in the care of your patient. Dictated and Authenticated by: Cornelio Edmondson MD 05/05/2020 3:51 PM Central Time ([place] & [place]) TASHA
--- NOTE | 2020-05-12 15:01 | CT ---
"PROCEDURE INFORMATION: Exam: CT Chest With Contrast Exam date and time: 05/05/2020 2:46 PM Age: 64 years old Clinical indication: Shortness of breath and other: Hypoxic; Patient HX: Covid + elevated d-dimer 1.14 TECHNIQUE: Imaging protocol: Computed tomography of the chest with intravenous contrast. 3D rendering (Not supervised by radiologist): MIP and/or 3D reconstructed images were created by the technologist. Contrast material: ISOVUE 370; Contrast volume: 100 ml; Contrast route: INTRAVENOUS (IV); COMPARISON: CR Chest 1V Frontal 05/05/2020 11:28 AM FINDINGS: Lungs: Extensive ground-glass opacities noted throughout both lungs. No masses. Pleural space: Unremarkable. No pneumothorax. Small right pleural effusion. Heart: Heart enlarged. No pericardial effusion. Aorta: Unremarkable. No aortic aneurysm. Lymph nodes: Scattered borderline enlarged mediastinal lymph nodes.. Symmetrical bilateral hilar adenopathy. Other: No definite filling defects identified in the 1st and 2nd order pulmonary arteries. Bones/joints: Unremarkable. No acute fracture. Soft tissues: Unremarkable. IMPRESSION: 1. Extensive ground-glass opacities throughout both lungs compatible with multifocal pneumonitis. 2. Cardiomegaly. 3. Mild mediastinal adenopathy with bilateral hilar adenopathy. 4. Small right pleural effusion. FABIPREET | Final Radiology Report CONFIDENTIALITY STATEMENT This report is intended only for use by the referring physician, and only in accordance with law. If you received this in error, call [phone]. Page 2 of 2 Thank you for allowing us to participate in the care of your patient. Dictated and Authenticated by: Cornelio Edmondson MD 05/05/2020 4:24 PM Central Time ([place] & [place]) TASHA"
== END 2020-05-08 10:50 | DRG 177 ==
LOC: JD.ED 10:21 → JD.ICU 16:25
PROVIDERS: ADMIT Internal Medicine; ATTEND Internal Medicine
PROC: XW033F5 Introduction of Other New Technology Therapeutic Substance into Peripheral Vein, Percutaneous Approach, New Technology Group 5 (ICD-10-PCS; principal; 2020-05-05)
PROC: 8E0ZXY6 Isolation (ICD-10-PCS; 2020-05-05)
DX: U07.1 COVID-19 (principal); R09.02 Hypoxemia; M19.90 Unspecified osteoarthritis, unspecified site; J12.89 Other viral pneumonia; E66.9 Obesity, unspecified; Z87.891 Personal history of nicotine dependence; Z88.1 Allergy status to other antibiotic agents; Z88.8 Allergy status to other drugs, medicaments and biological substances; Z68.42 Body mass index [BMI] 45.0-49.9, adult; Z79.899 Other long term (current) drug therapy; I10 Essential (primary) hypertension; E66.01 Morbid (severe) obesity due to excess calories; D47.3 Essential (hemorrhagic) thrombocythemia; E11.9 Type 2 diabetes mellitus without complications; F32.9 Major depressive disorder, single episode, unspecified
CPT/HCPCS: 36415; 36600; 71045; 71275; 80053; 82728; 82803; 83036; 83605; 83615; 83735; 83880; 84484; 85007; 85027; 85379; 85610; 85730; 86140; 87040 ×2; 87804 ×2; 93005; 94762; 99285; A9270; Q9967; 82962; 84100; 85025; 87641; 93010; 94667; 94668; 99222; 99232; 99239; 99284; J0456; J1100; J1650; J1815-GY; J7030; J7050; J8540

== ENCOUNTER 2021-12-18 09:15 | Inpatient (IN) | payer MEDICARE, OTHER ==
[2021-12-18] MEDS ORDERED: Sodium Chloride 0.9% 10 ML Syringe FLUSH PRN (09:18)
[2021-12-18] MEDS ORDERED: Sodium Chloride 0.9% 1,000 ML IV SCH (09:30)
[2021-12-18] MEDS ORDERED: Diltiazem 100 MG in Sodium Chloride 0.9% 100 ML IV SCH (09:30)
[2021-12-18] MEDS ORDERED: Furosemide 40 MG/4 ML VIAL IVPUSH ONE (09:31)
[2021-12-18] MEDS ORDERED: Diltiazem 50 MG/10 ML SDV IVPUSH ONE ×4 (09:31→12:50)
[2021-12-18 10:23] LABS: HEMOGLOBIN A1C 8.4 %
[2021-12-18 10:28] LABS: ESTIMATED GFR 50 mL/min (>60)
[2021-12-18] MEDS ORDERED: Diltiazem 240 MG Cap.ER PO ONE (10:47)
[2021-12-18] MEDS ORDERED: Apixaban 5 MG Tab PO ONE (10:54)
[2021-12-18] MEDS ORDERED: HYDROmorphone 0.5 MG/0.5 ML Syringe IVPUSH ONE (10:55)
[2021-12-18] MEDS ORDERED: Diltiazem 120 MG Cap.CD PO ONE (13:55)
[2021-12-18] MEDS: cefTRIAXone 2 GM in Sodium Chloride 0.9% 100 ML IV ONE ×2 (17:12→17:22)
[2021-12-18] MEDS ORDERED: Ondansetron 4 MG Tab.DIS PO PRN (18:03)
[2021-12-18] MEDS ORDERED: Acetaminophen/HYDROcodone 325-5 MG Tab PO PRN (18:03)
[2021-12-18] MEDS ORDERED: Cyproheptadine 4 MG Tab PO PRN (18:10)
[2021-12-18] MEDS ORDERED: Dextrose 5%-0.45% NaCl 1,000 ML IV SCH (18:15)
[2021-12-18] MEDS: cefTRIAXone 1 GM in Sodium Chloride 0.9% 100 ML IV SCH (19:32)
[2021-12-18] MEDS: Metoprolol Tartrate 25 MG Tab PO SCH (20:15)
[2021-12-18] MEDS: Diltiazem IR 60 MG Tab PO SCH (20:16)
[2021-12-18] MEDS: Apixaban 5 MG Tab PO SCH (20:17)
[2021-12-19] MEDS: Diltiazem IR 60 MG Tab PO SCH ×4 (01:30→18:11)
[2021-12-19] MEDS: Metoprolol Tartrate 25 MG Tab PO SCH ×2 (06:32→18:11)
[2021-12-19] MEDS: Folic Acid 1 MG Tab PO SCH (08:22)
[2021-12-19] MEDS: DULoxetine 30 MG Cap PO SCH (08:23)
[2021-12-19] MEDS: Apixaban 5 MG Tab PO SCH ×2 (08:23→20:31)
[2021-12-19] MEDS: Cetirizine 10 MG Tab PO SCH (08:23)
[2021-12-19] MEDS ORDERED: Empagliflozin 25 MG Tab PO SCH (09:00)
[2021-12-19] MEDS ORDERED: metFORMIN 500 MG Tab PO SCH (09:00)
[2021-12-19] MEDS ORDERED: Furosemide 40 MG Tab PO SCH (09:00)
[2021-12-19] MEDS ORDERED: Furosemide 20 MG/2 ML VIAL IVPUSH ONE (10:07)
[2021-12-19] MEDS: Potassium Chloride 20 MEQ Tab.ER PO SCH ×2 (11:05→20:32)
[2021-12-19] MEDS: Insulin Lispro 100 Unit/ML 3 ML KwikPen SUBCUT SCH ×3 (11:06→20:32)
[2021-12-19] MEDS: Furosemide 40 MG/4 ML VIAL IVPUSH SCH (13:09)
[2021-12-19] MEDS: Nystatin Crm 30 GM Tube TOP PRN ×2 (13:10→20:38)
[2021-12-19] MEDS: cefTRIAXone 1 GM in Sodium Chloride 0.9% 100 ML IV SCH (18:10)
[2021-12-20] MEDS: Benzocaine/Cetylpyridinium/Menthol Lozenge MUCMEM PRN (00:05)
[2021-12-20] MEDS: Diltiazem IR 60 MG Tab PO SCH ×5 (00:05→23:46)
[2021-12-20] MEDS: Metoprolol Tartrate 25 MG Tab PO SCH ×2 (06:01→18:21)
[2021-12-20] MEDS: Furosemide 40 MG/4 ML VIAL IVPUSH SCH (06:02)
[2021-12-20] MEDS: DULoxetine 30 MG Cap PO SCH (09:17)
[2021-12-20] MEDS: Cetirizine 10 MG Tab PO SCH (09:18)
[2021-12-20] MEDS: Folic Acid 1 MG Tab PO SCH (09:19)
[2021-12-20] MEDS: Apixaban 5 MG Tab PO SCH ×2 (09:22→20:22)
[2021-12-20] MEDS: Insulin Lispro 100 Unit/ML 3 ML KwikPen SUBCUT SCH ×4 (09:23→20:23)
[2021-12-20] MEDS: Bumetanide 1 MG/4 ML MDV IVPUSH SCH (14:49)
[2021-12-20] MEDS ORDERED: Sodium Chloride 0.9% 100 ML ONE (18:12)
[2021-12-20] MEDS: cefTRIAXone 1 GM in Sodium Chloride 0.9% 100 ML IV SCH (18:27)
[2021-12-21] MEDS: Metoprolol Tartrate 25 MG Tab PO SCH ×2 (05:52→17:56)
[2021-12-21] MEDS: Diltiazem IR 60 MG Tab PO SCH ×4 (05:52→23:37)
[2021-12-21] MEDS: Bumetanide 1 MG/4 ML MDV IVPUSH SCH ×2 (05:53→14:31)
[2021-12-21] MEDS: Insulin Lispro 100 Unit/ML 3 ML KwikPen SUBCUT SCH ×4 (09:03→21:53)
[2021-12-21] MEDS: Apixaban 5 MG Tab PO SCH ×2 (09:04→21:53)
[2021-12-21] MEDS: DULoxetine 30 MG Cap PO SCH (09:04)
[2021-12-21] MEDS: Cetirizine 10 MG Tab PO SCH (09:04)
[2021-12-21] MEDS: Folic Acid 1 MG Tab PO SCH (09:04)
[2021-12-21] MEDS: Potassium Chloride 20 MEQ Tab.ER PO SCH ×2 (09:04→21:53)
[2021-12-21] MEDS: cefTRIAXone 1 GM in Sodium Chloride 0.9% 100 ML IV SCH (17:48)
[2021-12-21] MEDS: Acetaminophen 325 MG Tab PO PRN (22:10)
[2021-12-21] MEDS: Benzocaine/Cetylpyridinium/Menthol Lozenge MUCMEM PRN (23:37)
[2021-12-22] MEDS: Diltiazem IR 60 MG Tab PO SCH ×3 (05:43→18:41)
[2021-12-22] MEDS: Acetaminophen 325 MG Tab PO PRN (05:43)
[2021-12-22] MEDS: Metoprolol Tartrate 25 MG Tab PO SCH ×2 (05:43→18:41)
[2021-12-22] MEDS: Bumetanide 1 MG/4 ML MDV IVPUSH SCH ×2 (05:44→15:40)
[2021-12-22] MEDS: Insulin Lispro 100 Unit/ML 3 ML KwikPen SUBCUT SCH ×4 (08:03→21:59)
[2021-12-22] MEDS: Apixaban 5 MG Tab PO SCH ×2 (08:05→21:58)
[2021-12-22] MEDS: DULoxetine 30 MG Cap PO SCH (08:05)
[2021-12-22] MEDS: Cetirizine 10 MG Tab PO SCH (08:05)
[2021-12-22] MEDS: Folic Acid 1 MG Tab PO SCH (08:05)
[2021-12-22] MEDS: Potassium Chloride 20 MEQ Tab.ER PO SCH ×2 (08:05→21:58)
[2021-12-22] MEDS: cefTRIAXone 1 GM in Sodium Chloride 0.9% 100 ML IV SCH (18:40)
[2021-12-23] MEDS: Diltiazem IR 60 MG Tab PO SCH ×3 (00:03→13:19)
[2021-12-23 06:24] LABS: ESTIMATED GFR > 60 mL/min (>60)
[2021-12-23] MEDS: Metoprolol Tartrate 25 MG Tab PO SCH (06:35)
[2021-12-23] MEDS: Bumetanide 1 MG/4 ML MDV IVPUSH SCH (06:48)
[2021-12-23] MEDS: Potassium Chloride 10 MEQ in Premix Bag 1 BAG IV SCH ×2 (08:05→11:58)
[2021-12-23] MEDS: Insulin Lispro 100 Unit/ML 3 ML KwikPen SUBCUT SCH ×2 (08:06→13:21)
[2021-12-23] MEDS: Folic Acid 1 MG Tab PO SCH (08:08)
[2021-12-23] MEDS: Cetirizine 10 MG Tab PO SCH (08:08)
[2021-12-23] MEDS: Potassium Chloride 20 MEQ Tab.ER PO SCH (08:08)
[2021-12-23] MEDS: DULoxetine 30 MG Cap PO SCH (08:08)
[2021-12-23] MEDS: Apixaban 5 MG Tab PO SCH (08:09)
[2021-12-23] MEDS ORDERED: Sodium Chloride 0.9% 1,000 ML ONE (08:29)
[2021-12-23] MEDS ORDERED: Sodium Chloride 0.9% 1,000 ML IV SCH (08:30)
[2021-12-23] MEDS ORDERED: Potassium Chloride 20 MEQ Tab.ER PO ONE (14:10)
== END 2021-12-23 14:06 | disposition home or self-care (01) | DRG 291 ==
LOC: JD.ED 09:15 → JD.MS 16:05
PROVIDERS: ADMIT Pediatrics; ATTEND Pediatrics
DX: I11.0 Hypertensive heart disease with heart failure (principal); I50.41 Acute combined systolic (congestive) and diastolic (congestive) heart failure; N30.00 Acute cystitis without hematuria; I48.91 Unspecified atrial fibrillation; G47.33 Obstructive sleep apnea (adult) (pediatric); S42.031A Displaced fracture of lateral end of right clavicle, initial encounter for closed fracture; E66.01 Morbid (severe) obesity due to excess calories; E80.6 Other disorders of bilirubin metabolism; E87.6 Hypokalemia; F32.A Depression, unspecified; Z96.698 Presence of other orthopedic joint implants; R09.02 Hypoxemia; E11.9 Type 2 diabetes mellitus without complications; Z79.01 Long term (current) use of anticoagulants; Z79.899 Other long term (current) drug therapy; Z79.82 Long term (current) use of aspirin; Z97.3 Presence of spectacles and contact lenses; Z86.16 Personal history of COVID-19; Z98.42 Cataract extraction status, left eye; Z98.41 Cataract extraction status, right eye; Z90.49 Acquired absence of other specified parts of digestive tract; Z87.891 Personal history of nicotine dependence; Z68.35 Body mass index [BMI] 35.0-35.9, adult; W18.30XA Fall on same level, unspecified, initial encounter; Y92.009 Unspecified place in unspecified non-institutional (private) residence as the place of occurrence of the external cause
CPT/HCPCS: 36415; 71045; 71045-26; 73030-26-RT; 73030-RT; 80048; 80053; 80061; 81001; 82248; 82553; 82947; 83036; 83735; 83880; 84484; 85025; 85610; 85730; 86140; 87086; 87088; 87186; 87641; 93005; 93010; 93306; 96365; 96366; 96367; 96375; 96376; 97110-GP; 97116-GP; 97162-GP; 99284; 99285-25; A9270-GY; J0696; J1170; J1815; J1940; J3480; J3490; J7030

== ENCOUNTER 2022-12-04 00:30 | Emergency (ER) | payer OTHER ==
[2022-12-04] MEDS ORDERED: Nystatin Topical Powder 15 GM Bottle TOP STA (01:24)
[2022-12-04 01:35] LABS: BASOPHILS ABSOLUTE AUTO 0.03 K/mm3 (0.01-0.08); BASOPHILS PERCENT AUTO 0.3 % (0.1-1.2); EOSINOPHILS ABSOLUTE AUTO 0.18 K/mm3 (0.04-0.36); EOSINOPHILS PERCENT AUTO 1.9 (0.7-5.8); HEMATOCRIT 45.7 % (34.1-44.9); HEMOGLOBIN 14.7 gm/dl (11.2-15.7); IMMATURE GRAN ABSOLUTE AUTO 0.04 K/mm3 (0.00-0.10); IMMATURE GRAN PERCENT AUTO 0.4 % (<=1.0); LYMPHOCYTES ABSOLUTE AUTO 1.05 K/mm3 (1.18-3.74); LYMPHOCYTES PERCENT AUTO 11.2 % (19.3-51.7); MEAN CORPUSCULAR HEMOGLOBIN 28.9 pg (25.6-32.2); MEAN CORPUSCULAR HGB CONC 32.2 g/dl (32.2-35.5); MEAN CORPUSCULAR VOLUME 89.8 fl (79.4-94.8); MEAN PLATELET VOLUME 10.8 fl (9.4-12.3); MONOCYTES PERCENT AUTO 7.5 % (4.7-12.5); NEUTROPHILS ABSOLUTE AUTO 7.35 K/mm3 (1.56-6.13); NEUTROPHILS PERCENT AUTO 78.7 % (34.0-71.1); PLATELET COUNT,PLT 212 K/mm3 (182-369); RED BLOOD CELL COUNT 5.09 M/mm3 (3.98-5.22); WHITE BLOOD CELL COUNT,WBC 9.35 K/mm3 (3.98-10.04)
[2022-12-04 02:14] LABS: CORONAVIRUS COVID-19 NAA NEGATIVE (NEGATIVE); INFLUENZA A NAA NEGATIVE (NEGATIVE); RESPIRATORY SYNCYTIAL VIR NAA NEGATIVE (NEGATIVE)
[2022-12-04 02:20] LABS: APPEARANCE,URINE CLEAR (Clear); BILIRUBIN,URINE NEGATIVE (Negative); COLOR,URINE YELLOW (Yellow); GLUCOSE,URINE 2+ (Negative); KETONES,URINE TRACE (Negative); LEUKOCYTE ESTERASE,URINE NEGATIVE (Negative); NITRITE,URINE NEGATIVE (Negative); OCCULT BLOOD,URINE NEGATIVE (Negative); PH,URINE 7.5 (5.0-8.0); PROTEIN,URINE 1+ (Negative); UROBILINOGEN,URINE 0.2 (0.2-1.0)
[2022-12-04 02:25] LABS: BACTERIA,URINE FEW /hpf (FEW); RBC,URINE 0-5 /hpf (0-5); SQUAMOUS EPITHELIAL CELLS,UR 0-5 /hpf (0-5); WBC,URINE 0-5 /hpf (0-5)
[2022-12-04 02:25] LABS: ALBUMIN 3.4 g/dl (3.4-5.0); ANION GAP 9.5 (5-15); BILIRUBIN TOTAL 1.6 mg/dL (0.2-1.0); C-REACTIVE PROTEIN 1.6 mg/dL (<1.0); CALCIUM 8.9 mg/dL (8.5-10.1); CREATININE 1.2 mg/dL (0.55-1.02); EST CRCL DRUG DOSING (CG) 42.59 mL/min; MAGNESIUM 2.3 mg/dL (1.8-2.4); POTASSIUM,K 3.5 mEq/L (3.5-5.1); PROTEIN TOTAL,TP 6.9 g/dl (6.4-8.2); TSH 2.252 uIU/mL (0.358-3.74)
[2022-12-04 02:26] LABS: AMORPHOUS SEDIMENT,URINE FEW /hpf (NOT SEEN); MUCUS,URINE NOT SEEN /hpf (FEW)
== END 2022-12-04 06:23 | disposition home or self-care (01) ==
LOC: JD.ED 00:30
DX: I11.0 Hypertensive heart disease with heart failure (principal); I50.9 Heart failure, unspecified; B37.2 Candidiasis of skin and nail; I48.91 Unspecified atrial fibrillation; E11.9 Type 2 diabetes mellitus without complications; E66.9 Obesity, unspecified; Z68.43 Body mass index [BMI] 50.0-59.9, adult; Z88.1 Allergy status to other antibiotic agents; Z88.8 Allergy status to other drugs, medicaments and biological substances; Z79.899 Other long term (current) drug therapy; Z79.01 Long term (current) use of anticoagulants; Z79.4 Long term (current) use of insulin; Z87.891 Personal history of nicotine dependence; Z86.16 Personal history of COVID-19; Z20.822 Contact with and (suspected) exposure to COVID-19
CPT/HCPCS: 0241U; 36415; 71046; 80053; 81001; 83605; 83735; 83880; 84443; 84484; 85025; 86140; 93005; 99285; A9270; 93010; 99283

== ENCOUNTER 2024-06-27 10:17 | Emergency (ER) | payer OTHER ==
[2024-06-27] MEDS ORDERED: Sodium Chloride 0.9% 10 ML Syringe FLUSH PRN (11:02)
[2024-06-27] MEDS: hydrALAZINE 20 MG/ML SDV IVPUSH ONE (11:28)
[2024-06-27 11:53] LABS: BASOPHILS ABSOLUTE AUTO 0.1 K/mm3 (0.0-0.2); BASOPHILS PERCENT AUTO 0.7 % (0.0-1.0); EOSINOPHILS ABSOLUTE AUTO 0.2 K/mm3 (0.0-0.4); EOSINOPHILS PERCENT AUTO 2.3 % (0.0-6.0); HEMATOCRIT 43.5 % (37.0-47.0); IMMATURE GRAN ABSOLUTE AUTO 0.03 K/mm3 (0.00-0.05); IMMATURE GRAN PERCENT AUTO 0.4 % (0.0-0.4); LYMPHOCYTES ABSOLUTE AUTO 0.8 K/mm3 (1.0-4.8); LYMPHOCYTES PERCENT AUTO 11.2 % (24.0-44.0); MEAN CORPUSCULAR HEMOGLOBIN 28.5 pg (28.0-32.0); MEAN CORPUSCULAR HGB CONC 32.2 g/dl (32.0-36.0); MEAN CORPUSCULAR VOLUME 88.6 fl (83.0-99.0); MEAN PLATELET VOLUME 10.7 fl (9.4-12.3); MONOCYTES ABSOLUTE AUTO 0.7 K/mm3 (0.0-0.8); MONOCYTES PERCENT AUTO 9.1 % (0.0-8.0); NEUTROPHILS ABSOLUTE AUTO 5.7 K/mm3 (1.8-7.7); NEUTROPHILS PERCENT AUTO 76.3 % (41.0-71.0); PLATELET COUNT,PLT 188 K/mm3 (150-400); RED BLOOD CELL COUNT 4.91 M/mm3 (4.10-5.30); WHITE BLOOD CELL COUNT,WBC 7.51 K/mm3 (3.9-11.3)
[2024-06-27 12:32] LABS: A/G RATIO 0.9 (1-2); ALBUMIN 3.3 g/dl (3.4-5.0); ANION GAP 11.8 (5-15); BILIRUBIN TOTAL 1.6 mg/dL (0.2-1.0); BUN/CREATININE RATIO 12.7 (14-18); CALCIUM 8.7 mg/dL (8.5-10.1); CREATININE 1.1 mg/dL (0.55-1.02); EST CRCL DRUG DOSING (CG) 45.19 mL/min; POTASSIUM,K 3.8 mEq/L (3.5-5.1); PROTEIN TOTAL,TP 6.9 g/dl (6.4-8.2)
[2024-06-27] MEDS: Furosemide 40 MG/4 ML VIAL IVPUSH ONE (14:12)
== END 2024-06-27 17:40 | disposition home or self-care (01) ==
LOC: JD.ED 10:17
DX: I11.0 Hypertensive heart disease with heart failure (principal); I50.9 Heart failure, unspecified; R05.9 Cough, unspecified; R21 Rash and other nonspecific skin eruption; I48.91 Unspecified atrial fibrillation; E11.9 Type 2 diabetes mellitus without complications; Z86.16 Personal history of COVID-19; Z87.891 Personal history of nicotine dependence; Z90.49 Acquired absence of other specified parts of digestive tract; Z88.8 Allergy status to other drugs, medicaments and biological substances; Z79.84 Long term (current) use of oral hypoglycemic drugs; Z79.4 Long term (current) use of insulin; Z79.01 Long term (current) use of anticoagulants; Z79.899 Other long term (current) drug therapy; Z91.199 Patient's noncompliance with other medical treatment and regimen due to unspecified reason
CPT/HCPCS: 36415; 71045; 80053; 83880; 84484; 85025; 87428; 93005; 96374; 96375; 99285; J0360; J1940